=== PATIENT | female | born 1980 | race Caucasian/White ===

== ENCOUNTER 2019-11-28 13:18 | Outpatient (REF) | payer OTHER, BC, SELFPAY ==
[2019-11-29 10:03] LABS: BV Int Neg Control Negative (Negative); BV Int Pos Control Positive (Positive)
[2019-11-29 11:20] LABS: CT PCR NOT DETECTED (Not Detect.); NG PCR NOT DETECTED (Not Detect.)
== END 2019-11-28 13:19 | disposition home or self-care (01) ==
LOC: HO.LAB 13:18
PROVIDERS: PCP Internal Medicine; Referring Provider Internal Medicine; Visit Provider Advanced Practice Midwife
DX: Z01.419 Encounter for gynecological examination (general) (routine) without abnormal findings (principal); Z11.3 Encounter for screening for infections with a predominantly sexual mode of transmission; N89.8 Other specified noninflammatory disorders of vagina; R10.2 Pelvic and perineal pain
CPT/HCPCS: 87480; 87491; 87510; 87591; 87660

== ENCOUNTER 2019-12-01 15:49 | Outpatient (REF) | payer OTHER, BC, SELFPAY ==
--- NOTE | 2019-12-01 16:03 | US_ITS ---
EXAMINATION: ULTRASOUND PELVIS COMPLETE CLINICAL INFORMATION: Pelvic and perineal pain. COMPARISON: None TECHNIQUE: Transabdominal and transvaginal ultrasound of the pelvis was performed. FINDINGS: The uterus is anteverted, anteflexed and measures 8.0 cm in length, 3.2 cm in AP and 3.6 cm in transverse dimension. Echogenic myometrial calcification is seen to the left of uterus. There is an intrauterine contraceptive device in correct position. There are small nabothian cysts seen in the cervix. Right ovary measures 2.5 x 1.8 x 1.6 cm and volume 3.8 mL. Previously it measured 1.6 x 0.9 x 1.2 cm. There are small follicular cysts in the ovary. The left ovary measures 3.2 x 1.6 x 1.5 cm and volume 4.0 mL. There are small follicular cysts. A dominant follicle is visualized. There is no free fluid in the cul-de-sac. US/US transvaginal IMPRESSION: There is an intrauterine contraceptive device in correct position in the endometrial canal. Nonspecific left myometrial calcification in the uterus. Small nabothian cysts in the cervix. Bilateral small follicular cysts in the ovaries.
--- NOTE | 2019-12-01 16:03 | US_ITS ---
EXAMINATION: ULTRASOUND PELVIS COMPLETE CLINICAL INFORMATION: Pelvic and perineal pain. COMPARISON: None TECHNIQUE: Transabdominal and transvaginal ultrasound of the pelvis was performed. FINDINGS: The uterus is anteverted, anteflexed and measures 8.0 cm in length, 3.2 cm in AP and 3.6 cm in transverse dimension. Echogenic myometrial calcification is seen to the left of uterus. There is an intrauterine contraceptive device in correct position. There are small nabothian cysts seen in the cervix. Right ovary measures 2.5 x 1.8 x 1.6 cm and volume 3.8 mL. Previously it measured 1.6 x 0.9 x 1.2 cm. There are small follicular cysts in the ovary. The left ovary measures 3.2 x 1.6 x 1.5 cm and volume 4.0 mL. There are small follicular cysts. A dominant follicle is visualized. There is no free fluid in the cul-de-sac. US/US pelvic complete IMPRESSION: There is an intrauterine contraceptive device in correct position in the endometrial canal. Nonspecific left myometrial calcification in the uterus. Small nabothian cysts in the cervix. Bilateral small follicular cysts in the ovaries.
== END 2019-12-01 15:50 | disposition home or self-care (01) ==
LOC: HO.US 15:49
PROVIDERS: PCP Internal Medicine; Visit Provider Advanced Practice Midwife
DX: R10.2 Pelvic and perineal pain (principal)
CPT/HCPCS: 76830; 76856

== ENCOUNTER → 2019-12-15 14:45 | Outpatient (BNVA) | payer OTHER, BC, SELFPAY | PROVIDERS: Visit Provider Advanced Practice Midwife | DX: Z76.89 Persons encountering health services in other specified circumstances (principal) ==

== ENCOUNTER 2020-09-18 15:49 | Outpatient (REF) | payer BC, SELFPAY ==
--- NOTE | ~2020-09-18 | MM_ITS ---
EXAMINATION: MM SCREENING DIGITAL BREAST TOMOSYNTHESIS, BILATERAL CLINICAL INFORMATION: Screening. Asymptomatic. The lifetime risk of breast cancer based on the Tyrer-Cuzick Model is 14%. COMPARISON: Mammography: 08/11/2019, 08/05/2018, 07/22/2017 TECHNIQUE: Digital mammography is performed in craniocaudal and mediolateral oblique views along with computer-aided detection (CAD). Digital breast tomosynthesis is performed in implant-displaced craniocaudal and implant-displaced mediolateral oblique views along with computer-aided detection (CAD). Synthesized 2D images are generated from the tomosynthesis. Additional implant displaced left MLO view is provided. FINDINGS: The breasts are heterogeneously dense, which may obscure small masses (ACR BI-RADS breast composition Category c). Parenchymal pattern borders on average fibroglandular. There is no significant mass or architectural abnormality or abnormal calcifications. No significant changes from prior studies. There are bilateral implants with smooth contours similar to previous exams. No significant changes. MM/MM tomosynthesis screen imp BI IMPRESSION: No mammographic evidence of malignancy. ASSESSMENT: BI-RADS 1: Negative RECOMMENDATION: Routine annual mammography screening. This patient's information was entered into a reminder system with a target due date for their next mammogram.
== END 2020-09-18 15:50 | disposition home or self-care (01) ==
LOC: HO.MAMMO 15:49
PROVIDERS: Visit Provider Internal Medicine
DX: Z12.31 Encounter for screening mammogram for malignant neoplasm of breast (principal)
CPT/HCPCS: 77063; 77067

== ENCOUNTER 2020-11-29 14:56 | Outpatient (REF) | payer BC, SELFPAY ==
[2020-11-30 08:31] LABS: BV Int Neg Control Negative (Negative); BV Int Pos Control Positive (Positive)
== END 2020-11-29 14:57 | disposition home or self-care (01) ==
LOC: HO.LAB 14:56
PROVIDERS: Visit Provider Advanced Practice Midwife
DX: Z01.419 Encounter for gynecological examination (general) (routine) without abnormal findings (principal)
CPT/HCPCS: 87480; 87510; 87660

== ENCOUNTER 2021-07-29 09:44 | Outpatient (REF) | payer BC, SELFPAY ==
[2021-07-30 06:05] LABS: CT PCR NOT DETECTED (Not Detect.); NG PCR NOT DETECTED (Not Detect.)
== END 2021-07-29 09:45 | disposition home or self-care (01) ==
LOC: HO.LAB 09:44
PROVIDERS: PCP Internal Medicine; Visit Provider Advanced Practice Midwife
DX: Z30.433 Encounter for removal and reinsertion of intrauterine contraceptive device (principal); Z32.02 Encounter for pregnancy test, result negative; Z20.2 Contact with and (suspected) exposure to infections with a predominantly sexual mode of transmission
CPT/HCPCS: 58300; 58301; 81025; 87491; 87591; J7298

== ENCOUNTER 2021-07-29 11:20 | Outpatient (REF) | payer BC, SELFPAY ==
--- NOTE | ~2021-07-29 | US_ITS ---
EXAMINATION: US PELVIS CLINICAL INFORMATION: Encounter for routine IUD placement. COMPARISON: Pelvic ultrasound 12/01/2019 TECHNIQUE: Ultrasound of the pelvis is performed using both transabdominal and transvaginal transducers along with Doppler. Transvaginal imaging is performed due to inadequate visualization transabdominally. FINDINGS: Uterus: The uterus is anteverted and measures 8.2 x 3.4 x 4.1 cm. The IUD appears well positioned within the endometrial canal. The endometrium measures approximately 6 mm The uterus is smooth in contour and has normal myometrial echogenicity. No visible fibroid. Adnexa: Both ovaries are visualized. There is normal color flow to the adnexa. There is no ovarian torsion. There is no pelvic ascites or fluid collection. Right ovary measures 2.9 x 1.2 x 1.6 cm. Left ovary measures 1.9 x 2.0 x 2.1 cm. US/US pelvic and transvaginal IMPRESSION: IUD appears in appropriate position.
== END 2021-07-29 11:21 | disposition home or self-care (01) ==
LOC: HO.US 11:20
PROVIDERS: PCP Internal Medicine; Visit Provider Advanced Practice Midwife
DX: Z30.431 Encounter for routine checking of intrauterine contraceptive device (principal)
CPT/HCPCS: 76830; 76856

== ENCOUNTER 2021-09-20 15:35 | Outpatient (REF) | payer BC, SELFPAY ==
--- NOTE | ~2021-09-20 | MM_ITS ---
EXAMINATION: MM SCREENING DIGITAL BREAST TOMOSYNTHESIS, BILATERAL CLINICAL INFORMATION: Screening. Asymptomatic. Family history breast cancer, sister. The lifetime risk of breast cancer based on the Tyrer-Cuzick Model is 21%. COMPARISON: Mammography: 09/18/2020, 08/29/2019, 08/05/2018 TECHNIQUE: Digital mammography is performed in craniocaudal and mediolateral oblique views along with computer-aided detection (CAD). Digital breast tomosynthesis is performed in implant-displaced craniocaudal and implant-displaced mediolateral oblique views along with computer-aided detection (CAD). Synthesized 2D images are generated from the tomosynthesis. FINDINGS: There are scattered areas of fibroglandular density (ACR BI-RADS breast composition Category b). There are bilateral implants. The implant contours are smooth and similar to prior studies. Parenchymal pattern is similar to prior exam. There is no interval mass or developing density or architectural abnormality. No abnormal calcifications. The axilla and skin contours are unremarkable. No significant changes. MM/MM tomosynthesis screen imp BI IMPRESSION: No mammographic evidence of malignancy. ASSESSMENT: BI-RADS 1: Negative RECOMMENDATION: 1. Routine annual mammography screening. 2. The lifetime risk of breast cancer based on the Tyrer-Cuzick Model is 21%. Additional annual adjunct screening with breast MRI may be of benefit in women with a risk score of 20% or greater. This patient's information was entered into a reminder system with a target due date for their next mammogram.
== END 2021-09-20 15:36 | disposition home or self-care (01) ==
LOC: HO.MAMMO 15:35
PROVIDERS: PCP Internal Medicine; Visit Provider Internal Medicine
DX: Z12.31 Encounter for screening mammogram for malignant neoplasm of breast (principal)
CPT/HCPCS: 77063; 77067

== ENCOUNTER 2021-12-02 15:43 | Outpatient (REF) | payer BC, SELFPAY ==
[2021-12-03 12:25] LABS: BV Int Neg Control Negative (Negative); BV Int Pos Control Positive (Positive)
== END 2021-12-02 15:44 | disposition home or self-care (01) ==
LOC: HO.LNP 15:43
PROVIDERS: Visit Provider Advanced Practice Midwife
DX: N89.8 Other specified noninflammatory disorders of vagina (principal)
CPT/HCPCS: 87480; 87510; 87660

== ENCOUNTER 2022-09-26 15:23 | Outpatient (REF) | payer BC, SELFPAY ==
--- NOTE | ~2022-09-26 | MM_ITS ---
EXAMINATION: MM SCREENING DIGITAL BREAST TOMOSYNTHESIS, BILATERAL CLINICAL INFORMATION: Screening. Asymptomatic. COMPARISON: Mammography: This study is compared with prior exams dating back to 2019. TECHNIQUE: Digital breast tomosynthesis is performed in both the craniocaudal and mediolateral oblique views along with computer-aided detection (CAD). Synthesized 2D images are generated from the tomosynthesis. FINDINGS: There are scattered areas of fibroglandular density (ACR BI-RADS breast composition Category b). There are mammographically intact, retropectoral saline breast implants. There are no significant masses, abnormal calcifications, or other abnormalities. MM/MM tomosynthesis screening BI IMPRESSION: No mammographic evidence of malignancy. ASSESSMENT: BI-RADS BI-RADS 1 - Negative RECOMMENDATION: Routine annual mammography screening. 1 year F/U This examination should not preclude the clinical evaluation of a suspicious palpable abnormality. This patient's information was entered into a reminder system with a target due date for their next mammogram.
== END 2022-09-26 15:24 | disposition home or self-care (01) ==
LOC: HO.MAMMO 15:23
PROVIDERS: PCP Internal Medicine; Visit Provider Advanced Practice Midwife
DX: Z12.31 Encounter for screening mammogram for malignant neoplasm of breast (principal)
CPT/HCPCS: 77063; 77067

== ENCOUNTER → 2022-09-26 16:00 | Outpatient (BNV) | payer BC, SELFPAY | PROVIDERS: PCP Internal Medicine; Visit Provider Radiology Diagnostic Radiology | DX: Z12.31 Encounter for screening mammogram for malignant neoplasm of breast (principal) | CPT/HCPCS: 77063; 77067 ==

== ENCOUNTER 2022-12-05 14:45 | Outpatient (REF) | payer BC, SELFPAY ==
[2022-12-06 13:40] LABS: BV Int Neg Control Negative (Negative); BV Int Pos Control Positive (Positive)
[2022-12-11 02:43] LABS: HPV mRNA E6/E7 rflx Not Detected (Not Detected)
== END 2022-12-05 14:46 | disposition home or self-care (01) ==
LOC: HO.LNP 14:45
PROVIDERS: Visit Provider Advanced Practice Midwife
DX: Z01.419 Encounter for gynecological examination (general) (routine) without abnormal findings (principal); Z11.51 Encounter for screening for human papillomavirus (HPV); N89.8 Other specified noninflammatory disorders of vagina; Z98.82 Breast implant status
CPT/HCPCS: 87480; 87510; 87624; 87660; 88142

== ENCOUNTER 2022-12-05 14:45 | Outpatient (AMB) | payer BC, SELFPAY ==
--- NOTE | 2022-12-05 14:48 | MHC.OFFVIS ---
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 Scribed for LENKA Olmos by Elvia Ayala manager medical device, on 12/05/2022 at 3:02 pm, EST. Director Of Retention Required: No Information Interpreted: non-clinical & clinical Oleo Hasher And Renderer: Oleo Hasher And Renderer Present (Yaritza ANDREWS) Accompanied by: Self / Same As Patient Allergies shellfish derived [SHELLFISH DERIVED] Allergy (Severe, Verified 12/05/22 14:54) ANAPHYLAXIS azithromycin [From ZITHROMAX] Allergy (Unknown, Verified 12/05/22 14:54) HIVES erythromycin base [ERYTHROMYCIN BASE] Allergy (Unknown, Verified 12/05/22 14:54) HIVES morphine [MORPHINE] Allergy (Unknown, Verified 12/05/22 14:54) HYPOTENSIVE cefuroxime [From Ceftin] Allergy (Verified 12/05/22 14:54) Hives From CEFTIN Allergy (Unknown, Uncoded 12/05/22 14:54) HIVES Is last menstrual period known: No (mirena) HPI HPI Comments History of Present Illness Details She is a premenopausal woman presenting for annual examination. Doing well with no concerns. She tries to eat healthy and stays active with exercise. Currently on Mirena IUD. She confirms vaginal itching and irritation every time she has sex with her . also had a yeast infection, treated with topical OTC cream. Denies family history of ovarian or colon cancer. Maternal grandmother, paternal grandmother, and sister diagnosed with breast cancer. Last pap smear 02/17/2020, was negative. Last mammogram 09/26/2022. Denies a history of diabetes mellitus. PFSH Surgical History H/O breast augmentation H/O knee surgery Hx of tubal ligation S/P cervical disc replacement H/O discectomy Family History Father Diabetes mellitus Hypertension Maternal Grandmother History of breast cancer Paternal Grandmother History of breast cancer Lupus Sister History of breast cancer, Onset Age: 45 Social History Household Members: Spouse and Children Housing: House Alcohol intake: current Alcohol intake frequency: holidays/special occasions only Patient Tobacco Use Status: Current everyday Tobacco user Cigarettes Per Day: 10 Years Smoked: 20 Current occupational status: employed 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 Sexual orientation: Straight/Heterosexual Gender identity: Female Female Reproductive History Menstrual Age of Menarche: 11 control method: progestin IUCD Total pregnancies: 5 Full term: 3 Number of Living Children: 3 Ab induced: 1 Ab spontaneous: 1 Date of last pap smear: 02/16/17 Date of Mammogram: 09/26/22 Review of Systems Const All systems reviewed & are unremarkable except as noted in HPI and below Reports vaginal pruritus Physical Exam Vital Signs: Last Vital Signs BP 110/72 12/05/22 14:53 BMI result Body Mass Index 24.1 Const General: cooperative, healthy appearing, no acute distress, well developed and alert Orientation/consciousness: patient oriented x3 HEENT Head: Yes normal to inspection Eyes General: appearance normal, both eyes and all related structures Neck Neck: Yes normal visual inspection Thyroid: Thyroid normal Chest Chest palpation & inspection: normal inspection of the chest Breast/axilla inspection: normal inspection of the breasts (no puckering, dimpling, peau de orange, retraction, discharge, masses) and Other (Bilateral breast implants, scarring.) Breast/axilla palpation: normal palpation of the breasts Resp Effort & Inspection: normal respiratory effort GI Inspection: Yes normal to inspection Palpation (GI): Soft to palpation Rectal Exam - Female: deferred General: Yes bladder normal to inspection and Yes bladder normal to palpation External Female Exam: normal external appearance and normal appearance of the urethra Speculum Exam - Vagina: normal appearance of the vagina and normal palpation Speculum Exam - Cervix: normal palpation and Other cervical findings present (IUD stings were normal in length) Bimanual exam- vagina & uterus: normal bimanual exam, normal palpation, uterine size normal, bladder normal to palpation and normal palpation Bimanual Exam- Adnexa, other: normal adnexae and no masses Skin General skin exam: no rashes or lesions noted Neuro General: patient oriented x3 Cognition (Neuro): normal cognition Extrem General: Yes normal to inspection Psych Attitude: cooperative Thought process: Normal thought process present Assessment & Plan Assessment & Plan (1) Encounter for annual routine gynecological examination: Code(s): Z01.419 - Encounter for gynecological examination (general) (routine) without abnormal findings Plan: BRCA testing handout was given. Patient will consider and contact office if interested for future testing. Referral was placed today. Boric acid supplement to help with PH balance. Mammogram ordered for next year, 2023. Discussed: Current recommendations for pap smears per ASCCP guidelines. Breast awareness and periodic self breast exams. Maintaining a healthy lifestyle including a well balanced diet and routine exercise. Encouraged patient to sign up for patient portal. All of her questions and concerns were addressed to the best of my ability She will return in one year for AG. (2) Hx of breast implants, bilateral: Code(s): Z98.82 - Breast implant status Orders: Orders Pap Smear Today N89.8 - Other specified noninflammatory disorders of vagina, Z01.419 - Encounter for gynecological examination (general) (routine) without abnormal findings Bacterial Vaginosis Panel Today N89.8 - Other specified noninflammatory disorders of vagina, Z01.419 - Encounter for gynecological examination (general) (routine) without abnormal findings MM tomosynthesis screening BI Today Z12.31 - Encounter for screening mammogram for malignant neoplasm of breast Referrals General Surgery Referral Z80.3 - Family history of malignant neoplasm of breast Coding Level of Care Code Est Pt Prev Care 40-64y(81904) Diagnoses Encounter for annual routine gynecological examination Z01.419 Hx of breast implants, bilateral Z98.82
[2022-12-05 14:53] VITALS: BP 110/72; BMI 24.1
== END 2022-12-05 15:50 ==
PROVIDERS: Visit Provider Advanced Practice Midwife
DX: Z01.419 Encounter for gynecological examination (general) (routine) without abnormal findings (principal); Z98.82 Breast implant status
CPT/HCPCS: 99396

== ENCOUNTER 2023-02-12 14:53 | Outpatient (AMB) | payer BC, SELFPAY ==
--- NOTE | 2023-02-12 15:05 | MHC.OFFVIS ---
Intake Vital Signs 02/12/23 15:29 Height 5 ft 3 in Weight 142 lb 4 oz BMI 25.2 BP 123/82 Blood Pressure Location Lt brachial Position Sitting Pulse 77 Intake Visit Reasons: family history breast cancer, genetic testing Intake Note: Patient is seen in office for family history of breast cancer and possible genetic testing. Pt c/o: denies any concerns regarding her breast, had breast augmentation with no complications, did not breast feed mm:09/26/22 Helper Metal Hanging Required: No Slat Twister: Slat Twister Present Accompanied by: Self / Same As Patient Allergies shellfish derived [SHELLFISH DERIVED] Allergy (Severe, Verified 12/05/22 14:54) ANAPHYLAXIS azithromycin [From ZITHROMAX] Allergy (Unknown, Verified 12/05/22 14:54) HIVES erythromycin base [ERYTHROMYCIN BASE] Allergy (Unknown, Verified 12/05/22 14:54) HIVES morphine [MORPHINE] Allergy (Unknown, Verified 12/05/22 14:54) HYPOTENSIVE cefuroxime [From Ceftin] Allergy (Verified 12/05/22 14:54) Hives From CEFTIN Allergy (Unknown, Uncoded 12/05/22 14:54) HIVES Medication List - Last Reconciled 02/12/23 by Pedro Godwin MD albuterol sulfate 90 mcg/actuation inhalation cetirizine (Zyrtec) 10 mg PO DAILY fluconazole 150 mg PO DAILY 1 dose fluticasone propion-salmeterol 500-50 mcg/dose (Advair Diskus) 1 ea inhalation BID ibuprofen 400 mg PO Q8H levonorgestrel (Mirena) intrauterine tizanidine 2 mg PO TID PRN HPI HPI Comments History of Present Illness Details 42-year-old female patient found to be at high risk for breast cancer due to family history including a maternal grandmother, paternal grandmother and sister having been diagnosed with breast cancer. She previously underwent bilateral breast augmentation with a combination of saline/silicone implants. She tolerated the procedure well and denies any postoperative complications. She did have a problem with palpable lumps in the breast several years ago and was followed closely with mammogram and ultrasound but this has subsequently resolved without the need for surgery. Her sister was diagnosed with triple negative breast cancer last year at the age of 45. She is being treated at [facility] and has undergone chemotherapy and radiation therapy. She is 5 para 3 with 3 living, 1 miscarriage and 1 termination. She denies breast-feeding her children. She denies any previous history of breast infections. Her most recent mammogram of 09/26/2022 revealed no mammographic evidence of malignancy (BI-RADS 1). [facility] Surgical History Personal history of spine surgery H/O breast augmentation H/O knee surgery Hx of tubal ligation S/P cervical disc replacement H/O discectomy Family History Father Diabetes mellitus Hypertension Maternal Grandmother History of breast cancer Paternal Grandmother History of breast cancer Lupus Sister History of breast cancer, Onset Age: 45 Family/Other Cancer of unknown origin Social History Household Members: Spouse and Children Housing: House Alcohol intake: current Alcohol intake frequency: holidays/special occasions only Patient Tobacco Use Status: Current everyday Tobacco user Cigarettes Per Day: 10 Years Smoked: 20 Current occupational status: employed 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 Sexual orientation: Straight/Heterosexual Gender identity: Female Female Reproductive History Menstrual Age of Menarche: 11 Total pregnancies: 5 Number of Living Children: 3 Ab induced: 1 Ab spontaneous: 1 Review of Systems Const All systems reviewed & are unremarkable except as noted in HPI and below Denies chills, Denies fever(s), Denies headache(s), Denies poor appetite and Denies weakness ENT Denies headache(s) Card Denies chest pain, Denies irregular heart rhythm, Denies palpitations and Denies dyspnea Resp Denies cough, Denies excessive phlegm production and Denies dyspnea GI Denies abdominal pain, Denies bloating, Denies change in bowel habits, Denies constipation, Denies heartburn, Denies diarrhea, Denies nausea and Denies vomiting Denies urinary frequency Musc Denies back pain, Denies muscle weakness and Denies numbness Skin/Breast Denies changing lesions and Denies unusual bruising Neuro Denies headache(s), Denies numbness, Denies paresthesias and Denies weakness Psych Denies anxiety and Denies depression Endo Denies palpitations Fredy/Lymph Denies lymphadenopathy Physical Exam Vital Signs: Last Vital Signs Pulse 77 02/12/23 15:29 BP 123/82 02/12/23 15:29 BMI result Body Mass Index 25.2 Const General: cooperative and no acute distress Nutritional Appearance: well nourished Orientation/consciousness: patient oriented x3 Limitations: no limitations HEENT Head: Yes normocephalic and Yes atraumatic Ears: hearing grossly normal bilaterally Chest Other: Well-healed bilateral breast augmentation incisions. No calcification or capsule thickening noted. Left breast: No skin change, no nipple retraction, no nipple discharge, no palpable mass, no enlarged lymph nodes. Right breast: No skin change, no nipple retraction, no nipple discharge, no palpable mass, no enlarged lymph nodes Resp Effort & Inspection: normal respiratory effort, no audible wheezes, no cough and no respiratory distress Cardio Jugular venous distension: no JVD GI Inspection: Yes normal to inspection Skin Other: Warm, dry, no rash Neuro General: patient oriented x3 Extrem General: Yes no clubbing, cyanosis or edema Assessment & Plan Assessment & Plan (1) At high risk for breast cancer: Code(s): Z91.89 - Other specified personal risk factors, not elsewhere classified (2) Family history of breast cancer: Code(s): Z80.3 - Family history of malignant neoplasm of breast Plan 42-year-old female patient presenting with a strong family history of breast cancer including her sister developing breast cancer at the age of 45. Examination today revealed no suspicious findings in either breast. She is status post bilateral breast augmentation. Her most recent mammogram of 09/26/2022 revealed no mammographic evidence of malignancy (BI-RADS 1). We discussed genetic testing including the risks and benefits and she consents to proceed. This was performed today and she will return approximately 6 weeks to review the results. Coding Level of Care Code New Pt Level 4 (51319) Diagnoses At high risk for breast cancer Z91.89 Family history of breast cancer Z80.3
[2023-02-12 15:29] VITALS: BP 123/82; PULSE 77; BMI 25.2
== END 2023-02-12 16:11 | disposition home or self-care (01) ==
PROVIDERS: PCP Internal Medicine; Visit Provider Surgery
DX: Z80.3 Family history of malignant neoplasm of breast (principal); Z91.89 Other specified personal risk factors, not elsewhere classified
CPT/HCPCS: 99204

== ENCOUNTER → 2023-02-12 14:53 | Outpatient (BNVA) | payer BC, SELFPAY | PROVIDERS: PCP Internal Medicine; Visit Provider Surgery ==

== ENCOUNTER 2023-03-26 15:29 | Outpatient (AMB) | payer BC, SELFPAY ==
--- NOTE | 2023-03-26 15:50 | MHC.OFFVIS ---
Intake Vital Signs 03/26/23 16:00 Height 5 ft 3 in Weight 141 lb 2 oz BMI 25.0 BP 133/82 Blood Pressure Location Lt brachial Position Sitting Intake Visit Reasons: Genetic test results *HERE* Intake Note: Patient is seen in office for genetic testing results. Pt c/o: denies any concerns at the time of visit Melter Clerk Required: No Accompanied by: Self / Same As Patient Allergies shellfish derived [SHELLFISH DERIVED] Allergy (Severe, Verified 03/26/23 16:00) ANAPHYLAXIS azithromycin [From ZITHROMAX] Allergy (Unknown, Verified 03/26/23 16:00) HIVES erythromycin base [ERYTHROMYCIN BASE] Allergy (Unknown, Verified 03/26/23 16:00) HIVES morphine [MORPHINE] Allergy (Unknown, Verified 03/26/23 16:00) HYPOTENSIVE cefuroxime [From Ceftin] Allergy (Verified 03/26/23 16:00) Hives From CEFTIN Allergy (Unknown, Uncoded 03/26/23 16:00) HIVES Medication List - Last Reconciled 03/27/23 by Pedro Godwin MD albuterol sulfate 90 mcg/actuation inhalation cetirizine (Zyrtec) 10 mg PO DAILY fluconazole 150 mg PO DAILY 1 dose fluticasone propion-salmeterol 500-50 mcg/dose (Advair Diskus) 1 ea inhalation BID ibuprofen 400 mg PO Q8H levonorgestrel (Mirena) intrauterine tizanidine 2 mg PO TID PRN HPI HPI Comments History of Present Illness Details 42-year-old female patient found to be at high risk for breast cancer due to family history including a maternal grandmother, paternal grandmother and sister having been diagnosed with breast cancer. She previously underwent bilateral breast augmentation with a combination of saline/silicone implants. She tolerated the procedure well and denies any postoperative complications. She did have a problem with palpable lumps in the breast several years ago and was followed closely with mammogram and ultrasound but this has subsequently resolved without the need for surgery. Her sister was diagnosed with triple negative breast cancer last year at the age of 45. She is being treated at [facility] and has undergone chemotherapy and radiation therapy. She is 5 para 3 with 3 living, 1 miscarriage and 1 termination. She denies breast-feeding her children. She denies any previous history of breast infections. Her most recent mammogram of 09/26/2022 revealed no mammographic evidence of malignancy (BI-RADS 1). She underwent genetic testing on 02/12/2023. She returns today to review the results. This revealed no clinically significant mutation. 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 A breast cancer risk score was calculated at 21% placing her at high risk for breast cancer [facility] remaining lifetime risk of breast cancer was 23.0 %. Recommendations included monthly self examination, twice yearly clinical breast examination, and yearly mammogram and yearly breast MRI alternating every 6 months. A copy of the genetic testing was provided to the patient. [facility] Surgical History Personal history of spine surgery H/O breast augmentation H/O knee surgery Hx of tubal ligation S/P cervical disc replacement H/O discectomy Family History Father Diabetes mellitus Hypertension Maternal Grandmother History of breast cancer Paternal Grandmother History of breast cancer Lupus Sister History of breast cancer, Onset Age: 45 Family/Other Cancer of unknown origin Social History Household Members: Spouse and Children Housing: House Alcohol intake: current Alcohol intake frequency: holidays/special occasions only Patient Tobacco Use Status: Current everyday Tobacco user Cigarettes Per Day: 10 Years Smoked: 20 Current occupational status: employed 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 Sexual orientation: Straight/Heterosexual Gender identity: Female Female Reproductive History Menstrual Age of Menarche: 11 Review of Systems Const All systems reviewed & are unremarkable except as noted in HPI and below Denies chills, Denies fever(s), Denies headache(s), Denies poor appetite and Denies weakness ENT Denies headache(s) Card Denies chest pain, Denies irregular heart rhythm, Denies palpitations and Denies dyspnea Resp Denies cough, Denies excessive phlegm production and Denies dyspnea GI Denies abdominal pain, Denies bloating, Denies change in bowel habits, Denies constipation, Denies heartburn, Denies diarrhea, Denies nausea and Denies vomiting Denies urinary frequency Musc Denies back pain, Denies muscle weakness and Denies numbness Skin/Breast Denies changing lesions and Denies unusual bruising Neuro Denies headache(s), Denies numbness, Denies paresthesias and Denies weakness Psych Denies anxiety and Denies depression Endo Denies palpitations Fredy/Lymph Denies lymphadenopathy Physical Exam Vital Signs: Last Vital Signs BP 133/82 03/26/23 16:00 BMI result Body Mass Index 25.0 Const General: cooperative and no acute distress Nutritional Appearance: well nourished Orientation/consciousness: patient oriented x3 Limitations: no limitations Chest Other: Exam deferred Resp Effort & Inspection: normal respiratory effort, no audible wheezes, no cough and no respiratory distress Cardio Jugular venous distension: no JVD GI Inspection: Yes normal to inspection Skin Other: Warm, dry, no rash Neuro General: patient oriented x3 Extrem General: Yes no clubbing, cyanosis or edema Assessment & Plan Assessment & Plan (1) At high risk for breast cancer: Code(s): Z91.89 - Other specified personal risk factors, not elsewhere classified (2) Family history of breast cancer: Code(s): Z80.3 - Family history of malignant neoplasm of breast (3) Hx of breast implants, bilateral: Code(s): Z98.82 - Breast implant status Plan 42-year-old female patient determined to be at high risk for breast cancer due to family history. Her breast cancer risk score and Tyrer-Cuzick score were both above the 20 % threshold placing her at high risk for breast cancer. I recommended monthly self examinations, twice yearly clinical breast examination (which could include breast examination performed by her fabrication and layout craftsman), yearly mammogram and MRI alternating every 6 months. The patient expressed understanding and agrees with the plan. MRI of the breast has been ordered and she will return approximately 6 months. She is welcome to call sooner for any new concerns. Orders: Orders MR breast BI wo/w con 03/26/23 Z80.3 - Family history of malignant neoplasm of breast, Z91.89 - Other specified personal risk factors, not elsewhere classified, Z98.82 - Breast implant status Coding Level of Care Code Est Pt Level 3 (42360) Diagnoses At high risk for breast cancer Z91.89 Family history of breast cancer Z80.3 Hx of breast implants, bilateral Z98.82
[2023-03-26 16:00] VITALS: BP 133/82; BMI 25.0
== END 2023-03-26 16:16 | disposition home or self-care (01) ==
PROVIDERS: PCP Internal Medicine; Visit Provider Surgery
DX: Z91.89 Other specified personal risk factors, not elsewhere classified (principal); Z80.3 Family history of malignant neoplasm of breast; Z98.82 Breast implant status
CPT/HCPCS: 99213

== ENCOUNTER → 2023-03-26 15:29 | Outpatient (BNVA) | payer BC, SELFPAY | PROVIDERS: PCP Internal Medicine; Visit Provider Surgery ==

== ENCOUNTER 2023-04-22 16:15 | Outpatient (REF) | payer BC, SELFPAY ==
--- NOTE | ~2023-04-22 | MR_ITS ---
EXAMINATION: MR BREAST WITHOUT AND WITH CONTRAST, BILATERAL CLINICAL INFORMATION: High risk screening. Family history of breast cancer (sister diagnosed at age 46). Bilateral implant augmentation. COMPARISON: Mammography (nondiagnostic monitor review): 09/26/2022. TECHNIQUE: A 1.5 T system and a dedicated breast coil. T1-weighted sequences without fat-saturation were obtained prior to the administration of contrast. Fat-saturated T1 and T2-weighted sequences were also acquired. The patient received 6 mL of IV gadolinium-based contrast, Gadavist. Multiple sequential dynamic T1-weighted sequences were obtained through both breasts with fat-saturation. Subtracted images were reviewed. CAD postprocessing with 3-D reconstructions, maximum intensity projections and kinetic analysis was performed by the interpreting radiologist at an independent workstation and reviewed as a portion of this exam. The post processing was technically limited. The precontrast series was not loaded into the software correctly. I am unable to adjust. FINDINGS: The subtracted series is limited due to motion. Amount of Remaining Fibroglandular Signal: There are scattered areas of fibroglandular tissue (ACR BI-RADS breast composition category B).* Background Parenchymal Enhancement: Marked. Symmetry of Background Enhancement: Symmetric. RIGHT BREAST: There are no large suspicious findings. Masses: There are no large suspicious enhancing masses. Non-mass Enhancement: There is marked heterogeneous non-mass background enhancement which could obscure a significant finding. Focus: There are innumerable scattered circumscribed enhancing foci. No irregular masses. Non-enhancing Findings: Associated findings: There are no suspicious associated findings. There are multiple cysts present. There is an intact retropectoral implant. No surrounding fluid collection Kinetic Curve Assessment: Initial Phase: Color mapping unable to be performed due to [place] CAD malfunction. Delayed Phase: No convincing areas of washout. LEFT BREAST: There are no large suspicious findings. Masses: There are no large suspicious enhancing masses. Non-mass Enhancement: There is marked heterogeneous non-mass background enhancement which could obscure a significant finding. There is slightly greater regional non-mass enhancement in the upper inner left breast when compared to the remainder of the breast. There is no mammographic correlate. There is no evidence of washout. There are no mass margins or distortion. Focus: Scattered nonspecific enhancing foci. Non-enhancing Findings: Associated Findings: There are no suspicious associated findings. There is an intact retropectoral implant. No surrounding fluid. Kinetic Curve Assessment: Initial Phase: Color mapping failed due to [place] CAD malfunction. Delayed Phase: No convincing washout. The axillary lymph nodes are morphologically normal. No suspicious internal mammary lymph nodes are seen. No suspicious abnormality in the visualized portions of chest or abdomen. MR/MR breast BI wo/w con IMPRESSION: Limited study. Marked heterogeneous non-mass background enhancement and motion artifact. Regional slightly asymmetric non-mass enhancement medial upper left breast. No mammographic correlate. Given the limitations of the study, consider a short interval follow-up MRI to assess for interval changes. ASSESSMENT: Right Breast: ACR BI-RADS 2: Benign finding. Left Breast: ACR BI-RADS 3: Probably benign finding - short-interval follow up. RECOMMENDATIONS: Recommend short interval follow-up left breast MRI in 6 months.
[2023-04-22] MEDS: gadobutroL 7.5 ML VIAL IVPUSH (17:30)
== END 2023-04-22 16:16 | disposition home or self-care (01) ==
LOC: HO.MRI 16:15
PROVIDERS: PCP Internal Medicine; Visit Provider Surgery
DX: Z91.89 Other specified personal risk factors, not elsewhere classified (principal); Z80.3 Family history of malignant neoplasm of breast; Z98.82 Breast implant status
CPT/HCPCS: 77049; A9585

== ENCOUNTER 2023-05-05 14:33 | Outpatient (AMB) | payer BC, SELFPAY ==
[2023-05-05 14:39] VITALS: BP 150/91; PULSE 88; BMI 25.0
--- NOTE | 2023-05-05 14:39 | MHC.OFFVIS ---
Intake Vital Signs 05/05/23 14:39 Height 5 ft 3 in Weight 141 lb 6 oz BMI 25.0 BP 150/91 H Blood Pressure Location Lt brachial Position Sitting Pulse 88 Intake Visit Reasons: MRI results, breast Intake Note: Patient is seen in office for MRI results, following breast. Pt c/o: here for results MRI B:04/22/23 Early Morning Babysitter Required: No Accompanied by: Self / Same As Patient Allergies shellfish derived [SHELLFISH DERIVED] Allergy (Severe, Verified 05/05/23 14:39) ANAPHYLAXIS azithromycin [From ZITHROMAX] Allergy (Unknown, Verified 05/05/23 14:39) HIVES erythromycin base [ERYTHROMYCIN BASE] Allergy (Unknown, Verified 05/05/23 14:39) HIVES morphine [MORPHINE] Allergy (Unknown, Verified 05/05/23 14:39) HYPOTENSIVE cefuroxime [From Ceftin] Allergy (Verified 05/05/23 14:39) Hives From CEFTIN Allergy (Unknown, Uncoded 05/05/23 14:39) HIVES Medication List - Last Reconciled 05/05/23 by Pedro Godwin MD albuterol sulfate 90 mcg/actuation inhalation cetirizine (Zyrtec) 10 mg PO DAILY fluconazole 150 mg PO DAILY 1 dose fluticasone propion-salmeterol 500-50 mcg/dose (Advair Diskus) 1 ea inhalation BID ibuprofen 400 mg PO Q8H levonorgestrel (Mirena) intrauterine tizanidine 2 mg PO TID PRN HPI HPI Comments History of Present Illness Details 42-year-old female patient found to be at high risk for breast cancer due to family history including a maternal grandmother, paternal grandmother and sister having been diagnosed with breast cancer. She previously underwent bilateral breast augmentation with a combination of saline/silicone implants. She tolerated the procedure well and denies any postoperative complications. She did have a problem with palpable lumps in the breast several years ago and was followed closely with mammogram and ultrasound but this has subsequently resolved without the need for surgery. Her sister was diagnosed with triple negative breast cancer last year at the age of 45. She is being treated at [facility] and has undergone chemotherapy and radiation therapy. She is 5 para 3 with 3 living, 1 miscarriage and 1 termination. She denies breast-feeding her children. She denies any previous history of breast infections. Her most recent mammogram of 09/26/2022 revealed no mammographic evidence of malignancy (BI-RADS 1). She underwent genetic testing on 02/12/2023. This revealed no clinically significant mutation. 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 A breast cancer risk score was calculated at 21% placing her at high risk for breast cancer her Tyrer-zick remaining lifetime risk of breast cancer was 23.0 %. Recommendations included monthly self examination, twice yearly clinical breast examination, and yearly mammogram and yearly breast MRI alternating every 6 months. Breast MRI performed on 04/22/2023 revealed marked heterogeneous non-mass background enhancement and motion artifact. Regionally slightly asymmetric non mass enhancement in the medial upper left breast was noted which was felt to be low suspicion for malignancy (BI-RADS 3 left breast, BI-RADS 2 right breast). Repeat left mammogram in 6 months is recommended. [facility] Surgical History Personal history of spine surgery H/O breast augmentation H/O knee surgery Hx of tubal ligation S/P cervical disc replacement H/O discectomy Family History Father Diabetes mellitus Hypertension Maternal Grandmother History of breast cancer Paternal Grandmother History of breast cancer Lupus Sister History of breast cancer, Onset Age: 45 Family/Other Cancer of unknown origin Social History Household Members: Spouse and Children Housing: House Alcohol intake: current Alcohol intake frequency: holidays/special occasions only Patient Tobacco Use Status: Current everyday Tobacco user Cigarettes Per Day: 10 Years Smoked: 20 Current occupational status: employed 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 Sexual orientation: Straight/Heterosexual Gender identity: Female Female Reproductive History Menstrual Age of Menarche: 11 Review of Systems Const All systems reviewed & are unremarkable except as noted in HPI and below Denies chills, Denies fever(s), Denies headache(s), Denies poor appetite and Denies weakness ENT Denies headache(s) Card Denies chest pain, Denies irregular heart rhythm, Denies palpitations and Denies dyspnea Resp Denies cough, Denies excessive phlegm production and Denies dyspnea GI Denies abdominal pain, Denies bloating, Denies change in bowel habits, Denies constipation, Denies heartburn, Denies diarrhea, Denies nausea and Denies vomiting Denies urinary frequency Musc Denies back pain, Denies muscle weakness and Denies numbness Skin/Breast Denies changing lesions and Denies unusual bruising Neuro Denies headache(s), Denies numbness, Denies paresthesias and Denies weakness Psych Denies anxiety and Denies depression Endo Denies palpitations Fredy/Lymph Denies lymphadenopathy Physical Exam Vital Signs: Last Vital Signs Pulse 88 05/05/23 14:39 BP 150/91 H 05/05/23 14:39 BMI result Body Mass Index 25.0 Const General: no acute distress Chest Other: Exam deferred Resp Effort & Inspection: normal respiratory effort Skin Other: Warm, dry, no rash Extrem Other: No edema Assessment & Plan Assessment & Plan (1) At high risk for breast cancer: Code(s): Z91.89 - Other specified personal risk factors, not elsewhere classified (2) Hx of breast implants, bilateral: Code(s): Z98.82 - Breast implant status (3) Family history of breast cancer: Code(s): Z80.3 - Family history of malignant neoplasm of breast Plan 42-year-old female patient with a strong family history of breast cancer felt to be at high risk for breast cancer with a Tyrer-Cuzick score of 23 %. She returns today following breast MRI which did reveal an asymmetric area of non-mass enhancement in the left breast. Repeat in 6 months was recommended. I recommended follow-up examination following the repeat MRI in 6 months. She is welcome to call sooner for any new concerns. Orders: Orders MR breast LT wo/w con 10/05/23 Z80.3 - Family history of malignant neoplasm of breast, Z91.89 - Other specified personal risk factors, not elsewhere classified, Z98.82 - Breast implant status Coding Level of Care Code Est Pt Level 3 (88902) Diagnoses At high risk for breast cancer Z91.89 Hx of breast implants, bilateral Z98.82 Family history of breast cancer Z80.3
== END 2023-05-05 15:04 | disposition home or self-care (01) ==
PROVIDERS: PCP Internal Medicine; Visit Provider Surgery
DX: R92.8 Other abnormal and inconclusive findings on diagnostic imaging of breast (principal); Z98.82 Breast implant status; Z91.89 Other specified personal risk factors, not elsewhere classified; Z80.3 Family history of malignant neoplasm of breast
CPT/HCPCS: 99213

== ENCOUNTER → 2023-05-05 14:33 | Outpatient (BNVA) | payer BC, SELFPAY | PROVIDERS: PCP Internal Medicine; Visit Provider Surgery ==

== ENCOUNTER 2023-10-06 15:28 | Outpatient (REF) | payer BC, SELFPAY ==
--- NOTE | ~2023-10-06 | MM_ITS ---
EXAMINATION: MM SCREENING DIGITAL BREAST TOMOSYNTHESIS, BILATERAL WITH BREAST IMPLANTS CLINICAL INFORMATION: Screening. Asymptomatic. COMPARISON: Mammography: This study is compared with prior exams dating back to TECHNIQUE: Digital breast tomosynthesis is performed in both the craniocaudal and mediolateral oblique views along with computer-aided detection (CAD). Synthesized 2D images are generated from the tomosynthesis. FINDINGS: The breasts are heterogeneously dense, which may obscure small masses (ACR BI-RADS breast composition Category c). There are bilateral, retropectoral, mammographically intact saline breast implants. There are no significant masses, abnormal calcifications, or other abnormalities. MM/MM tomosynthesis screen imp BI IMPRESSION: No mammographic evidence of malignancy. ASSESSMENT: BI-RADS BI-RADS 1 - Negative RECOMMENDATION: Routine annual mammography screening. 1 year F/U This examination should not preclude the clinical evaluation of a suspicious palpable abnormality. This patient's information was entered into a reminder system with a target due date for their next mammogram. Electronically signed by: Lisa Tee MD 10/15/2023 11:22 AM EDT
== END 2023-10-06 15:29 | disposition home or self-care (01) ==
LOC: HO.MAMMO 15:28
PROVIDERS: PCP Internal Medicine; Referring Provider Advanced Practice Midwife; Visit Provider Internal Medicine
DX: Z12.31 Encounter for screening mammogram for malignant neoplasm of breast (principal)
CPT/HCPCS: 77063; 77067

== ENCOUNTER → 2023-10-06 15:45 | Outpatient (BNV) | payer BC, SELFPAY | PROVIDERS: PCP Internal Medicine; Referring Provider Advanced Practice Midwife; Visit Provider Radiology Diagnostic Radiology | DX: Z12.31 Encounter for screening mammogram for malignant neoplasm of breast (principal) | CPT/HCPCS: 77063; 77067 ==

== ENCOUNTER 2023-11-12 15:26 | Outpatient (AMB) | payer BC, SELFPAY ==
--- NOTE | 2023-11-12 15:32 | MHC.OFFVIS ---
Vital Signs 11/12/23 15:44 Height 5 ft 3 in Weight 138 lb 8 oz BMI 24.5 BP 133/79 Blood Pressure Location Lt brachial Position Sitting Pulse 77 Intake Visit Reasons: MRI results Intake Note: Patient is seen in office for 6 month follow up, breast exam. 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 Accompanied by: Self / Same As Patient Allergies shellfish derived [SHELLFISH DERIVED] Allergy (Severe, Verified 05/05/23 14:39) ANAPHYLAXIS azithromycin [From ZITHROMAX] Allergy (Unknown, Verified 05/05/23 14:39) HIVES erythromycin base [ERYTHROMYCIN BASE] Allergy (Unknown, Verified 05/05/23 14:39) HIVES morphine [MORPHINE] Allergy (Unknown, Verified 05/05/23 14:39) HYPOTENSIVE cefuroxime [From Ceftin] Allergy (Verified 05/05/23 14:39) Hives From CEFTIN Allergy (Unknown, Uncoded 05/05/23 14:39) HIVES Medication List - Last Reconciled 11/12/23 by Pedro Godwin MD albuterol sulfate 90 mcg/actuation inhalation cetirizine (Zyrtec) 10 mg PO DAILY epinephrine (EpiPen) 0.3 mg IM Q10M PRN fluconazole 150 mg PO DAILY 1 dose fluticasone propion-salmeterol 500-50 mcg/dose (Advair Diskus) 1 ea inhalation BID ibuprofen 400 mg PO Q8H levonorgestrel (Mirena) intrauterine lorazepam (Ativan) 0.5 mg orally 1 hour prior to MRI, repeat x1 prn PRN; omalizumab (Xolair) 300 mg subcut Q4W omalizumab (Xolair) 75 mg subcut Q4W tizanidine 2 mg PO TID PRN HPI Comments Details: 43-year-old female patient found to be at high risk for breast cancer due to family history including a maternal grandmother, paternal grandmother and sister having been diagnosed with breast cancer. She previously underwent bilateral breast augmentation with a combination of saline/silicone implants. She tolerated the procedure well and denies any postoperative complications. She did have a problem with palpable lumps in the breast several years ago and was followed closely with mammogram and ultrasound but this has subsequently resolved without the need for surgery. Her sister was diagnosed with triple negative breast cancer last year at the age of 45 and is being treated in [facility] with chemotherapy and radiation therapy. The patient is 5 para 3 with 3 living, 1 miscarriage and 1 termination. She denies breast-feeding her children. She denies any previous history of breast infections. Her most recent mammogram of 10/06/2023 revealed no mammographic evidence of malignancy (BI-RADS 1). She underwent genetic testing on 02/12/2023. This revealed no clinically significant mutation. 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 A breast cancer risk score was calculated at 21% placing her at high risk for breast cancer her Tyrer-Cuzick remaining lifetime risk of breast cancer was 23.0 %. Recommendations included monthly self examination, twice yearly clinical breast examination, and yearly mammogram and yearly breast MRI alternating every 6 months. Breast MRI performed on 04/22/2023 revealed marked heterogeneous non-mass background enhancement and motion artifact. Regionally slightly asymmetric non mass enhancement in the medial upper left breast was noted which was felt to be low suspicion for malignancy (BI-RADS 3 left breast, BI-RADS 2 right breast). A repeat breast MRI performed on 10/14/2023 at [facility] revealed bilateral non-mass enhancement felt to be low suspicion for malignancy and six-month follow-up was recommended (BI-RADS 3). She denies any new breast symptoms. She reports her 19-year-old dog this morning. [facility] Surgical History Personal history of spine surgery H/O breast augmentation H/O knee surgery Hx of tubal ligation S/P cervical disc replacement H/O discectomy Family History Father Diabetes mellitus Hypertension Maternal Grandmother History of breast cancer Paternal Grandmother History of breast cancer Lupus Sister History of breast cancer, Onset Age: 45 Family/Other Cancer of unknown origin Social History Household Members: Spouse and Children Housing: House Alcohol intake: current Alcohol intake frequency: holidays/special occasions only Patient Tobacco Use Status: Current everyday Tobacco user Cigarettes Per Day: 10 Years Smoked: 20 Current occupational status: employed 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 Sexual orientation: Straight/Heterosexual Gender identity: Female Female Reproductive History Menstrual Age of Menarche: 11 Review of Systems Const All systems reviewed & are unremarkable except as noted in HPI and below Denies chills, Denies fever(s), Denies headache(s), Denies poor appetite and Denies weakness ENT Denies headache(s) Card Denies chest pain, Denies irregular heart rhythm, Denies palpitations and Denies dyspnea Resp Denies cough, Denies excessive phlegm production and Denies dyspnea GI Denies abdominal pain, Denies bloating, Denies change in bowel habits, Denies constipation, Denies heartburn, Denies diarrhea, Denies nausea and Denies vomiting Denies urinary frequency Musc Denies back pain, Denies muscle weakness and Denies numbness Skin/Breast Denies changing lesions and Denies unusual bruising Neuro Denies headache(s), Denies numbness, Denies paresthesias and Denies weakness Psych Denies anxiety and Denies depression Endo Denies palpitations Fredy/Lymph Denies lymphadenopathy Physical Exam Vital Signs: Last Vital Signs Pulse 77 11/12/23 15:44 BP 133/79 11/12/23 15:44 BMI result Body Mass Index 24.5 Const General: no acute distress Chest Other: Bilateral breast implants with intact capsules and well-healed incisions. Left breast: No skin change, no nipple retraction, no nipple discharge, no palpable mass, no enlarged lymph nodes. Right breast: No skin change, no nipple retraction, no nipple discharge, no palpable mass, no enlarged lymph nodes Resp Effort & Inspection: normal respiratory effort Skin Other: Warm, dry, no rash Extrem Other: No edema Assessment & Plan Assessment & Plan (1) At high risk for breast cancer: Code(s): Z91.89 - Other specified personal risk factors, not elsewhere classified Category: Medical (2) Family history of breast cancer: Code(s): Z80.3 - Family history of malignant neoplasm of breast Category: Medical (3) Hx of breast implants, bilateral: Code(s): Z98.82 - Breast implant status Category: Surgical Plan 43-year-old female patient with a strong family history of breast cancer felt to be at high risk for breast cancer with a Tyrer-Cuzick score of 23 %. She returns today following her repeat breast MRI performed at [facility] on 10/14/2023 which revealed non-mass enhancement bilaterally felt to be low suspicion for malignancy and six-month follow-up recommended (BI-RADS 3). Her most recent mammogram performed on 10/06/2023 revealed no suspicious findings in either breast (BI-RADS 1). I recommended follow-up examination following the repeat MRI in 6 months. She is welcome to call sooner for any new concerns. Orders: Orders MR breast BI wo/w con 04/18/24 Z80.3 - Family history of malignant neoplasm of breast, Z91.89 - Other specified personal risk factors, not elsewhere classified Coding Level of Care Code Est Pt Level 3 (80065) Diagnoses At high risk for breast cancer Z91.89 Family history of breast cancer Z80.3 Hx of breast implants, bilateral Z98.82
[2023-11-12 15:44] VITALS: BP 133/79; PULSE 77; BMI 24.5
== END 2023-11-12 16:01 | disposition home or self-care (01) ==
PROVIDERS: PCP Internal Medicine; Visit Provider Surgery
DX: Z91.89 Other specified personal risk factors, not elsewhere classified (principal); Z80.3 Family history of malignant neoplasm of breast; Z98.82 Breast implant status
CPT/HCPCS: 99213

== ENCOUNTER → 2023-11-12 15:26 | Outpatient (BNVA) | payer BC, SELFPAY | PROVIDERS: PCP Internal Medicine; Visit Provider Surgery ==

== ENCOUNTER 2023-12-11 13:35 | Outpatient (REF) | payer BC, SELFPAY ==
[2023-12-12 15:49] LABS: Bacterial Vaginosis PCR NEGATIVE (Negative); Candida Group PCR NOT DETECTED (Not Detect); Candida glab krusei PCR NOT DETECTED (Not Detect); Trichomonas vaginalis PCR NOT DETECTED (Not Detect)
== END 2023-12-11 13:36 | disposition home or self-care (01) ==
LOC: HO.LAB 13:35
PROVIDERS: PCP Internal Medicine; Visit Provider Advanced Practice Midwife
DX: N89.8 Other specified noninflammatory disorders of vagina (principal)
CPT/HCPCS: 0352U

== ENCOUNTER 2023-12-11 13:35 | Outpatient (AMB) | payer BC, SELFPAY ==
--- NOTE | 2023-12-11 13:43 | A.OFFVIS_ITS ---
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 Doing well with no concerns: She reports urgency and leakage of urine. Admits to frequent coughing which further aggravates her symptoms. She has tried pelvic floor physical therapy in the past- did not help. She denies any urinary symptoms currently. She tries to eat healthy and stays active with exercise. Mirena IUD user no issues with bleeding. Currently is not sexually active regularly, partner has some health issues additionally. She denies vaginal itching and irritation. Recently treated for yeast. STI screening offered; she declined. Last pap smear 2022, negative. Mammogram: 2023. ON LICENSE OF [facility] Medical History (Updated 12/11/23 @ 14:27 by Wendy Marshall CNM) Urgency incontinence Surgical History Personal history of spine surgery H/O breast augmentation H/O knee surgery Hx of tubal ligation S/P cervical disc replacement H/O discectomy Family History (Updated 12/11/23 @ 13:50 by DARRYL Travis) Father Diabetes mellitus Hypertension Maternal Grandmother History of breast cancer Paternal Grandmother History of breast cancer Lupus Sister History of breast cancer, Onset Age: 45 Family/Other Cancer of unknown origin Maternal Aunt Ovarian cancer Social History Household Members: Spouse and Children Housing: House Alcohol intake: current Alcohol intake frequency: holidays/special occasions only Patient Tobacco Use Status: Current everyday Tobacco user Cigarettes Per Day: 10 Years Smoked: 20 Current occupational status: employed 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 Sexual orientation: Straight/Heterosexual Gender identity: Female Female Reproductive History Menstrual Age of Menarche: 11 control method: progestin IUCD (Mirena 07/2021) Total pregnancies: 5 Full term: 3 Number of Living Children: 3 Ab induced: 1 Ab spontaneous: 1 Date of last pap smear: 12/05/22 (neg pap and hpv) Date of Mammogram: 10/06/23 (Birad 1) Review of Systems Const All systems reviewed & are unremarkable except as noted in HPI and below Reports as per HPI Eyes Reports no additional complaints ENT Reports no additional complaints Card Reports no additional complaints Resp Reports no additional complaints GI Reports as per HPI and Reports no additional complaints Reports as per HPI Musc Reports no additional complaints Skin/Breast Reports as per HPI Neuro Reports no additional complaints Psych Reports no additional complaints Endo Reports no additional complaints Fredy/Lymph Reports no additional complaints Aller/Immun Reports no additional complaints Physical Exam Vital Signs: Last Vital Signs BP 110/74 12/11/23 13:44 BMI result Body Mass Index 23.7 Const General: cooperative, healthy appearing, no acute distress, well developed and alert Orientation/consciousness: patient oriented x3 HEENT Head: Yes normal to inspection Eyes General: appearance normal, both eyes and all related structures Neck Neck: Yes normal visual inspection Thyroid: Thyroid normal Chest Other: Bilateral implants and scarring Chest palpation & inspection: normal inspection of the chest and other (no puckering, dimpling, peau de orange, retraction, discharge, masses) Breast/axilla inspection: normal inspection of the breasts Breast/axilla palpation: normal palpation of the breasts Resp Effort & Inspection: normal respiratory effort GI Inspection: Yes normal to inspection and Yes scar Palpation (GI): Soft to palpation Rectal Exam - Female: deferred General: Yes bladder normal to palpation External Female Exam: normal external appearance and normal appearance of the urethra Speculum Exam - Vagina: normal appearance of the vagina, normal palpation and normal vaginal discharge (White discharge clumpy in the posterior aspect of the vaginal wall) Speculum Exam - Cervix: normal appearance of the cervix, normal palpation and Other cervical findings present (IUD string teased out with Cytobrush) Bimanual exam- vagina & uterus: normal bimanual exam, normal palpation, uterine size normal, bladder normal to palpation, normal palpation and non-tender Bimanual Exam- Adnexa, other: no masses Skin General skin exam: no rashes or lesions noted Rashes: no rashes Neuro General: patient oriented x3 Cognition (Neuro): normal cognition Extrem General: Yes normal to inspection Psych Attitude: cooperative Thought process: Normal thought process present Assessment & Plan Assessment & Plan (1) Encounter for annual routine gynecological examination: Code(s): Z01.419 - Encounter for gynecological examination (general) (routine) without abnormal findings Category: Medical (2) IUD surveillance: Code(s): Z30.431 - Encounter for routine checking of intrauterine contraceptive device Category: Medical (3) Urgency incontinence: Code(s): N39.41 - Urge incontinence Category: Medical (4) Vaginal discharge: Code(s): N89.8 - Other specified noninflammatory disorders of vagina Plan Discussed: Current recommendations for pap smears per ASCCP guidelines. Breast awareness and periodic breast exams. Close surveillance with Dr. Godwin with the MRIs, exams and mammograms. Maintain a healthy lifestyle including a well balanced diet and routine exercise. BV panel obtained await results for plan of care. Referral to urology-prefers female provider. Patient verbalizes understanding and agrees to the plan of care. She was given opportunity to ask questions and all questions were answered to the best of my ability. RTO in one year for annual nutrition services aide examination. This note is constructed using voice recognition software. While every effort has been made to ensure accuracy, dairy farm worker errors may have been included. Orders: Orders Bacterial Vaginosis Panel Today N89.8 - Other specified noninflammatory disorders of vagina Referrals Urology Referral N39.41 - Urge incontinence Coding Level of Care Code Est Pt Prev Care 40-64y(76140) Diagnoses Encounter for annual routine gynecological examination Z01.419 IUD surveillance Z30.431 Urgency incontinence N39.41 Vaginal discharge N89.8
[2023-12-11 13:44] VITALS: BP 110/74; BMI 23.7
== END 2023-12-11 14:35 | disposition home or self-care (01) ==
LOC: HO.HWS 13:35
PROVIDERS: PCP Internal Medicine; Visit Provider Advanced Practice Midwife
DX: Z01.419 Encounter for gynecological examination (general) (routine) without abnormal findings (principal); Z30.431 Encounter for routine checking of intrauterine contraceptive device; N39.41 Urge incontinence; N89.8 Other specified noninflammatory disorders of vagina
CPT/HCPCS: 99396

== ENCOUNTER 2024-02-18 14:55 | Outpatient (AMB) | payer BC, SELFPAY ==
--- NOTE | 2024-02-18 15:23 | A.OFFVIS_ITS ---
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 Accompanied by: Self / Same As Patient Allergies shellfish derived [SHELLFISH DERIVED] Allergy (Severe, Verified 02/18/24 20:41) ANAPHYLAXIS azithromycin [From ZITHROMAX] Allergy (Unknown, Verified 02/18/24 20:41) HIVES erythromycin base [ERYTHROMYCIN BASE] Allergy (Unknown, Verified 02/18/24 20:41) HIVES morphine [MORPHINE] Allergy (Unknown, Verified 02/18/24 20:41) HYPOTENSIVE cefuroxime [From Ceftin] Allergy (Verified 02/18/24 20:41) Hives From CEFTIN Allergy (Unknown, Uncoded 02/18/24 20:41) HIVES Medication List - Last Reconciled 02/18/24 by ALICE Villa-JACQUELINE albuterol sulfate 90 mcg/actuation inhalation cetirizine (Zyrtec) 10 mg PO DAILY epinephrine (EpiPen) 0.3 mg IM Q10M PRN ibuprofen 400 mg PO Q8H levonorgestrel (Mirena) intrauterine lorazepam (Ativan) 0.5 mg orally 1 hour prior to MRI, repeat x1 prn PRN; mirabegron ER (Myrbetriq) 25 mg PO DAILY 30 days omalizumab (Xolair) 300 mg subcut Q4W omalizumab (Xolair) 75 mg subcut Q4W tizanidine 2 mg PO TID PRN HPI Comments Details: Shannan is a 43-year-old female patient of . She has a past medical history of allergies. She presents to the office today as a new patient for stress/urge incontinence. 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 She does have a previous history of 3 vaginal births. She reports babies were of average size and labors were of average t iming. She reports having allergies and feels upon coughing she has urinary leakage. We discussed at length potential causes and treatment options for lower urinary tract symptoms patient is experiencing. She otherwise denies urinary urgency, urinary frequency, nocturia, hematuria, dysuria, foul smelling urine, changes to urinary stream, flank pain, fever, and or chills. In office urinalysis results reviewed with the patient today. PVR 0 mL. She reports having trialed pelvic floor in the past and did not find this helpful. She reports symptoms have been present for quite sometime however feels they are worsening. We discussed obtaining retroperitoneal ultrasound for further assessment evaluation. We discussed potential near future in office urodynamics for further assessment evaluation. She discusses her sons upcoming extensive back surgery at [facility]. She otherwise offers no other issues or concerns at this time. [facility] Medical History Urgency incontinence Surgical History Personal history of spine surgery H/O breast augmentation H/O knee surgery Hx of tubal ligation S/P cervical disc replacement H/O discectomy Family History Father Diabetes mellitus Hypertension Maternal Grandmother History of breast cancer Paternal Grandmother History of breast cancer Lupus Sister History of breast cancer, Onset Age: 45 Family/Other Cancer of unknown origin Maternal Aunt Ovarian cancer Social History Household Members: Spouse and Children Housing: House Alcohol intake: current Alcohol intake frequency: holidays/special occasions only Patient Tobacco Use Status: Current everyday Tobacco user Cigarettes Per Day: 10 Years Smoked: 20 Current occupational status: employed 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 Sexual orientation: Straight/Heterosexual Gender identity: Female Female Reproductive History Menstrual Age of Menarche: 11 Review of Systems Const All systems reviewed & are unremarkable except as noted in HPI and below Physical Exam Const General: cooperative, healthy appearing, comfortable, no acute distress, well developed, alert and awake Nutritional Appearance: average body habitus Orientation/consciousness: patient oriented x3 Limitations: no limitations HEENT Head: Yes normal to inspection, Yes normocephalic and Yes atraumatic Ears: hearing grossly normal bilaterally Eyes General: appearance normal, both eyes and all related structures Neck Neck: Yes normal visual inspection and Yes trachea midline Chest Chest palpation & inspection: normal inspection of the chest Resp Effort & Inspection: normal respiratory effort and able to speak in complete sentences Cardio Rate: regular rate GI Inspection: Yes normal to inspection General: Yes no CVA tenderness Back/Spine/Pelvis Back: no CVA tenderness Skin General skin exam: no rashes or lesions noted Neuro General: patient oriented x3 Extrem General: Yes normal to inspection Psych Appearance: grossly normal and well kempt Mental Status: mental status grossly normal Speech and movement: Normal speech and movement present and Clear speech present Affect: normal affect Attitude: cooperative Thought process: Normal thought process present Thought content: Normal thought content present Insight: Fair insight present (Psych) Judgement: Fair judgement present (Psych) Office Procedures Post Void Residual Post Residual Void Post Void Residual (PVR): 0 39089-Xujx Void Residual by ultrasound Results AMB Urinalysis, Automated UA Leukoctes 0 Alessandra/uL Last Edit by [employer] [facility] on 02/18/24 15:35 UA Nitrite Last Edit by [employer] [facility] on 02/18/24 15:35 UA Urobilinogen 0.2 mg/dL Last Edit by [employer] on 02/18/24 15:35 UA Protein 15 mg/dL Last Edit by [employer] on 02/18/24 15:35 UA pH 6.0 Last Edit by [employer] on 02/18/24 15:35 UA Blood 0 Daniel/uL Last Edit by [employer] on 02/18/24 15:35 UA Specific [place] 1.020 Last Edit by [employer] on 02/18/24 15:35 UA Ketone Last Edit by [employer] on 02/18/24 15:35 UA Bilirubin 0 mg/dL Last Edit by [employer] on 02/18/24 15:35 UA Glucose 0 mg/dL Last Edit by [employer] on 02/18/24 15:35 Results Reviewed Results Reviewed: Laboratory Last Values Urine pH (Auto) 6.0 02/18/24 15:34 Specific [place] (Auto) 1.020 02/18/24 15:34 Urine Protein (Auto) 15 mg/dL 02/18/24 15:34 Glucose (UA)(Auto) 0 mg/dL 02/18/24 15:34 Urine Blood (Auto) 0 Daniel/uL 02/18/24 15:34 Urine Bilirubin (Auto) 0 mg/dL 02/18/24 15:34 Urine Urobilinogen (Auto) 0.2 mg/dL 02/18/24 15:34 Leukocyte Esterase (Auto) 0 Alessandra/uL 02/18/24 15:34 Assessment & Plan Assessment & Plan (1) Urgency incontinence: Code(s): N39.41 - Urge incontinence Category: Medical (2) Stress incontinence: Code(s): N39.3 - Stress incontinence (female) (male) Category: Medical Plan In office urinalysis results reviewed the patient today; as noted above. PVR 0 mL. We discussed at length potential causes of stress/urge incontinence. We discussed treatment options for lower urinary tract symptoms patient was experiencing. We discussed bladder triggers/irritants. Will obtain retroperitoneal ultrasound for further assessment evaluation. Start Myrbetriq as discussed and prescribed. We discussed in office urodynamics for further assessment evaluation. Follow-up in 3 months with imaging and PVR; or sooner with any issues, concerns, and or questions. Orders: Orders AMB Post Void Residual by ultrasound Today N39.41 - Urge incontinence US retroperitoneal comp Today N39.3 - Stress incontinence (female) (male), N39.41 - Urge incontinence AMB Urinalysis Automated Today Z13.9 - Encounter for screening, unspecified Medications: New mirabegron ER (Myrbetriq) 25 mg PO DAILY 30 days 30 tabs 3RF N30.10 - Interstitial cystitis (chronic) without hematuria, N32.81 - Overactive bladder, R35.1 - Nocturia, R39.15 - Urgency of urination Patient Instructions: The patient had an opportunity to ask questions regarding the treatment plan. All questions were answered. Physical exam, labs, and imaging were discussed and reviewed in detail. As well as risks, benefits, and discussion of treatment choices. No major barriers to understanding were identified. The patient expressed understanding and agreement with the above treatment plan. The patient was made aware they should contact our office by phone for worsening of their current condition, the appearance of new symptoms, or with any questions or concerns. Compliance is encouraged with any medications and follow up testing that is ordered. It is a privilege to be allowed the opportunity to participate in? your urological care.? Again, if you have any questions or concerns If you have any questions or concerns please do not hesitate to contact me. The office is [phone]. This note is constructed using voice recognition software. While every effort has been made to ensure accuracy termite renewal inspector errors may have been included. Yours sincerely, ELIER Villa Coding Level of Care Code New Pt Level 4 (77832) Diagnoses Urgency incontinence N39.41 Stress incontinence N39.3 CPT Codes Post Residual Void - PVR CPT Code: 48067-Ugrb Void Residual by ultrasound ([id number])
== END 2024-02-18 16:09 | disposition home or self-care (01) ==
PROVIDERS: PCP Internal Medicine; Visit Provider Nurse Practitioner Family
DX: N39.41 Urge incontinence (principal); N39.3 Stress incontinence (female) (male); Z13.9 Encounter for screening, unspecified
CPT/HCPCS: 99204

== ENCOUNTER → 2024-02-18 14:55 | Outpatient (BNVA) | payer BC, SELFPAY | PROVIDERS: PCP Internal Medicine; Visit Provider Nurse Practitioner Family | DX: N39.46 Mixed incontinence (principal); N30.10 Interstitial cystitis (chronic) without hematuria; N32.81 Overactive bladder | CPT/HCPCS: 51798; 81003 ==

== ENCOUNTER 2024-05-06 13:24 | Outpatient (REF) | payer BC, SELFPAY ==
--- NOTE | ~2024-05-06 | MR_ITS ---
EXAMINATION: MR BREAST WITHOUT AND WITH CONTRAST, BILATERAL CLINICAL INFORMATION: Strong family history of breast cancer including sister in her 40s. Bilateral silicone implants. COMPARISON: Mammogram September 2023 breast MRI April 2023 TECHNIQUE: MR imaging of the breast was performed using T1, T2 and fat saturated techniques. Dynamic multiphase imaging was also performed after administration of intravenous gadolinium contrast agent. Computer generated 3-D reconstruction was performed. FINDINGS: There is heterogeneous fibroglandular breast tissue with marked background enhancement bilateral scattered enhancing foci. There are bilateral retropectoral intact silicone implants. LEFT BREAST: No suspicious enhancing masses or areas of nonmass enhancement. No architectural distortion. No internal mammary or axillary adenopathy. RIGHT BREAST: No suspicious enhancing masses or areas of nonmass enhancement. No architectural distortion. No internal mammary or axillary adenopathy. Limited views of the chest and abdomen are unremarkable. MR/MR breast BI wo/w con IMPRESSION: No MR evidence of malignancy bilateral breasts. Recommend breast MRI screening surveillance in one year. ASSESSMENT: LEFT BREAST: BI-RADS 1-Negative RIGHT BREAST: BI-RADS 1-Negative RECOMMENDATIONS: Yearly screening mammography. Yearly MRI screening surveillance. Electronically signed by: Ira Baig DO 05/08/2024 08:41 PM EDT
[2024-05-06] MEDS: gadobutroL 7.5 ML VIAL IVPUSH (14:29)
== END 2024-05-06 13:25 | disposition home or self-care (01) ==
LOC: HO.MRI 13:24
PROVIDERS: PCP Internal Medicine; Visit Provider Surgery
DX: Z12.39 Encounter for other screening for malignant neoplasm of breast (principal); Z91.89 Other specified personal risk factors, not elsewhere classified; Z80.3 Family history of malignant neoplasm of breast
CPT/HCPCS: 77049; A9585

== ENCOUNTER → 2024-05-06 13:39 | Outpatient (BNV) | payer BC, SELFPAY | PROVIDERS: PCP Internal Medicine; Visit Provider Internal Medicine | DX: Z80.3 Family history of malignant neoplasm of breast (principal) | CPT/HCPCS: 77049 ==

== ENCOUNTER 2024-05-12 15:19 | Outpatient (AMB) | payer BC, SELFPAY ==
--- NOTE | 2024-05-12 15:20 | A.OFFVIS_ITS ---
Vital Signs 05/12/24 15:21 Height 5 ft 3 in Weight 130 lb BMI 23.0 BP 134/74 Blood Pressure Location Rt brachial Position Sitting Pulse 78 Pulse Source Pulse Oximeter Pulse Oximetry (%) 99 Oxygen Delivery Method Room Air Intake Visit Reasons: 6 month follow up Intake Note: Patient is seen in office for 6 month follow up, breast exam. Pt c/o: No new concerns or sx to report. MRI:05/06/24 MRI:10/14/23 Allergies shellfish derived [SHELLFISH DERIVED] Allergy (Severe, Verified 05/12/24 15:20) ANAPHYLAXIS azithromycin [From ZITHROMAX] Allergy (Unknown, Verified 05/12/24 15:20) HIVES erythromycin base [ERYTHROMYCIN BASE] Allergy (Unknown, Verified 05/12/24 15:20) HIVES morphine [MORPHINE] Allergy (Unknown, Verified 05/12/24 15:20) HYPOTENSIVE cefuroxime [From Ceftin] Allergy (Verified 05/12/24 15:20) Hives From CEFTIN Allergy (Unknown, Uncoded 05/12/24 15:20) HIVES Medication List - Last Reconciled 05/12/24 by Pedro Godwin MD albuterol sulfate 90 mcg/actuation inhalation cetirizine (Zyrtec) 10 mg PO DAILY epinephrine (EpiPen) 0.3 mg IM Q10M PRN ibuprofen 400 mg PO Q8H levonorgestrel (Mirena) intrauterine lorazepam (Ativan) 0.5 mg orally 1 hour prior to MRI, repeat x1 prn PRN; omalizumab (Xolair) mg subcut tizanidine 2 mg PO TID PRN HPI Comments Details: 43-year-old female patient found to be at high risk for breast cancer due to family history including a maternal grandmother, paternal grandmother and sister having been diagnosed with breast cancer. She previously underwent bilateral breast augmentation with a combination of saline/silicone implants. She tolerated the procedure well and denies any postoperative complications. She did have a problem with palpable lumps in the breast several years ago and was followed closely with mammogram and ultrasound but this has subsequently resolved without the need for surgery. Her sister was diagnosed with triple negative breast cancer last year at the age of 45 and is being treated in [facility] with chemotherapy and radiation therapy. The patient is 5 para 3 with 3 living, 1 miscarriage and 1 termination. She denies breast-feeding her children. She denies any previous history of breast infections. Her most recent mammogram of 10/06/2023 revealed no mammographic evidence of malignancy (BI-RADS 1). She underwent genetic testing on 02/12/2023. This revealed no clinically significant mutation. 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 A breast cancer risk score was calculated at 21% placing her at high risk for breast cancer her Tyrer- Cuzick remaining lifetime risk of breast cancer was 23.0 %. Recommendations included monthly self examination, twice yearly clinical breast examination, and yearly mammogram and yearly breast MRI alternating every 6 months. Her most recent breast MRI performed on 05/06/2024 revealed no MR specific evidence of malignancy (BI-RADS 1 bilateral). Routine follow-up in 1 year is recommended. She denies any new breast symptoms. [facility] Medical History Urgency incontinence Surgical History Personal history of spine surgery H/O breast augmentation H/O knee surgery Hx of tubal ligation S/P cervical disc replacement H/O discectomy Family History Father Diabetes mellitus Hypertension Maternal Grandmother History of breast cancer Paternal Grandmother History of breast cancer Lupus Sister History of breast cancer, Onset Age: 45 Family/Other Cancer of unknown origin Maternal Aunt Ovarian cancer Social History Household Members: Spouse and Children Housing: House Alcohol intake: current Alcohol intake frequency: holidays/special occasions only Patient Tobacco Use Status: Current everyday Tobacco user Cigarettes Per Day: 10 Years Smoked: 20 Current occupational status: employed 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 Sexual orientation: Straight/Heterosexual Gender identity: Female Female Reproductive History Menstrual Age of Menarche: 11 Review of Systems Const All systems reviewed & are unremarkable except as noted in HPI and below Physical Exam Vital Signs: Last Vital Signs Pulse 78 05/12/24 15:21 BP 134/74 05/12/24 15:21 Pulse Ox 99 05/12/24 15:21 Oxygen Delivery Method Room Air 05/12/24 15:21 BMI result Body Mass Index 23.0 Const General: no acute distress Nutritional Appearance: well nourished Orientation/consciousness: patient oriented x3 Chest Other: Bilateral breast implants with intact capsules and well-healed incisions. Left breast: No skin change, no nipple retraction, no nipple discharge, no palpable mass, no enlarged lymph nodes. Right breast: No skin change, no nipple retraction, no nipple discharge, no palpable mass, no enlarged lymph nodes Resp Effort & Inspection: normal respiratory effort, no audible wheezes, no cough and no respiratory distress Skin Other: Warm, dry, no rash Neuro General: patient oriented x3 Extrem Other: No edema Assessment & Plan Assessment & Plan (1) At high risk for breast cancer: Code(s): Z91.89 - Other specified personal risk factors, not elsewhere classified Category: Medical (2) Family history of breast cancer: Code(s): Z80.3 - Family history of malignant neoplasm of breast Category: Medical (3) Hx of breast implants, bilateral: Code(s): Z98.82 - Breast implant status Category: Surgical Plan 43-year-old female patient with a strong family history of breast cancer felt to be at high risk for breast cancer with a Tyrer-Cuzick score of 23 %. She feels well and denies any ongoing breast symptoms. Her most recent mammogram of 10/06/2023 revealed no mammographic evidence of malignancy (BI-RADS 1). Breast MRI performed on 05/06/2024 revealed no MR specific evidence of malignancy (BI- RADS 1 bilateral). Examination reveals bilateral breast implants with no new suspicious findings in either breast. I recommended follow-up examination in 6 months. Her annual mammogram is scheduled for 10/13/2024 at the [facility]. Coding Level of Care Code Est Pt Level 3 (83713) Diagnoses At high risk for breast cancer Z91.89 Family history of breast cancer Z80.3 Hx of breast implants, bilateral Z98.82
[2024-05-12 15:21] VITALS: BP 134/74; PULSE 78; O2SAT 99; BMI 23.0
== END 2024-05-12 15:36 | disposition home or self-care (01) ==
LOC: HO.HGS 15:20
PROVIDERS: PCP Internal Medicine; Visit Provider Surgery
DX: Z91.89 Other specified personal risk factors, not elsewhere classified (principal); Z80.3 Family history of malignant neoplasm of breast; Z98.82 Breast implant status
CPT/HCPCS: 99213

== ENCOUNTER → 2024-05-12 15:19 | Outpatient (BNVA) | payer BC, SELFPAY | PROVIDERS: PCP Internal Medicine; Visit Provider Surgery | DX: Z80.3 Family history of malignant neoplasm of breast (principal); Z91.89 Other specified personal risk factors, not elsewhere classified ==

== ENCOUNTER 2024-10-13 15:58 | Outpatient (REF) | payer BC, SELFPAY ==
--- NOTE | ~2024-10-13 | MM_ITS ---
EXAMINATION: MM SCREENING DIGITAL BREAST TOMOSYNTHESIS, BILATERAL CLINICAL INFORMATION: Screening. Asymptomatic. COMPARISON: Mammography: Comparison is made with relevant avialable priors. TECHNIQUE: Digital mammography is performed in craniocaudal and mediolateral oblique views along with computer-aided detection (CAD). Digital breast tomosynthesis is performed in implant-displaced craniocaudal and implant-displaced mediolateral oblique views along with computer-aided detection (CAD). FINDINGS: The breasts are heterogeneously dense, which may obscure small masses (ACR BI-RADS breast composition Category c). Bilateral retropectoral saline implants are normal-appearing. There are no significant masses, abnormal calcifications, or other abnormalities. MM/MM tomosynthesis screen imp BI IMPRESSION: There are no significant changes from prior study. ASSESSMENT: BI-RADS BI-RADS 2 - Benign Findings RECOMMENDATION: Routine annual mammography screening. 1 year F/U This patient's information was entered into a reminder system with a target due date for their next mammogram. Electronically signed by: Ira Baig DO 10/17/2024 05:22 PM EDT
== END 2024-10-13 15:59 | disposition home or self-care (01) ==
LOC: HO.MAMMO 15:58
PROVIDERS: PCP Internal Medicine; Visit Provider Internal Medicine
DX: Z12.31 Encounter for screening mammogram for malignant neoplasm of breast (principal)
CPT/HCPCS: 77063; 77067

== ENCOUNTER → 2024-10-13 16:15 | Outpatient (BNV) | payer BC, SELFPAY | PROVIDERS: PCP Internal Medicine; Visit Provider Internal Medicine | DX: Z12.31 Encounter for screening mammogram for malignant neoplasm of breast (principal) | CPT/HCPCS: 77063; 77067 ==

== ENCOUNTER 2024-11-10 09:19 | Outpatient (REF) | payer BC, SELFPAY ==
[2024-11-11 08:13] LABS: Bacterial Vaginosis PCR NEGATIVE (Negative); Candida Group PCR NOT DETECTED (Not Detect); Candida glab krusei PCR NOT DETECTED (Not Detect); Trichomonas vaginalis PCR NOT DETECTED (Not Detect)
== END 2024-11-10 09:20 | disposition home or self-care (01) ==
LOC: HO.LAB 09:19
PROVIDERS: PCP Internal Medicine; Visit Provider Advanced Practice Midwife
DX: Z30.432 Encounter for removal of intrauterine contraceptive device (principal); N64.4 Mastodynia; N89.8 Other specified noninflammatory disorders of vagina; Z20.2 Contact with and (suspected) exposure to infections with a predominantly sexual mode of transmission
CPT/HCPCS: 58301; 81515

== ENCOUNTER 2024-11-10 09:19 | Outpatient (AMB) | payer BC, SELFPAY ==
[2024-11-10 09:26] VITALS: BP 122/64; BMI 24.3
--- NOTE | 2024-11-10 09:26 | A.OFFVIS_ITS ---
Vital Signs 11/10/24 09:26 Height 5 ft 3 in Weight 137 lb BMI 24.3 BP 122/64 Intake Visit Reasons: IUD issues Intake Note: pt c/o some bleeding with Mirena last week and chronic yeast infections, wants IUD taken out. Also right breast pain possibly from coughing Roll Examiner: Roll Examiner Present (Makenzie) Allergies shellfish derived (SHELLFISH DERIVED) Allergy (Severe, Verified 11/10/24 09:26) ANAPHYLAXIS azithromycin (From ZITHROMAX) Allergy (Unknown, Verified 11/10/24 09:26) HIVES erythromycin base (ERYTHROMYCIN BASE) Allergy (Unknown, Verified 11/10/24 09:26) HIVES morphine (MORPHINE) Allergy (Unknown, Verified 11/10/24 09:26) HYPOTENSIVE cefuroxime (From Ceftin) Allergy (Verified 11/10/24 09:26) Hives From CEFTIN Allergy (Unknown, Uncoded 05/12/24 15:20) HIVES Is last menstrual period known: Yes Last menstrual period: 10/31/24 HPI Comments Details: Patient is here today for several concerns: 1. Light bleeding last week when wiping x1 day, followed by spotting for several days, does not usually bled. 2. Chronic yeast infections since having a Mirena placed years ago. She has an external PCP and reports her BS levels are normal, and reports a healthy diet without excessive sugar. PCP, records are not available. 3. Right-sided breast pain for 2 months, she thinks it might be from a muscle strain, noted discomfort with turning towards her left side. Mammogram 10/11/19 25-ASSESSMENT: BI-RADS BI-RADS 2 - Benign Findings. She denies any trauma to the breast or any changes with her implant. Has biannual screening including MRI study, follow up by Dr. Godwin. 4. Requests IUD be removed today. IUD used for AUB. History of tubal ligation. [facility] Medical History (Updated 11/10/24 @ 11:25 by Wendy Marshall CNM) Elevated IgE level Breast pain, right Urgency incontinence Surgical History Personal history of spine surgery H/O breast augmentation H/O knee surgery Hx of tubal ligation S/P cervical disc replacement H/O discectomy Family History Father Diabetes mellitus Hypertension Maternal Grandmother History of breast cancer Paternal Grandmother History of breast cancer Lupus Sister History of breast cancer, Onset Age: 45 Family/Other Cancer of unknown origin Maternal Aunt Ovarian cancer Social History Household Members: Spouse and Children Housing: House Alcohol intake: current Alcohol intake frequency: holidays/special occasions only Patient Tobacco Use Status: Current everyday Tobacco user Cigarettes Per Day: 10 Years Smoked: 20 Current occupational status: employed 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 Sexual orientation: Straight/Heterosexual Gender identity: Female Female Reproductive History Menstrual Age of Menarche: 11 Date of last menstrual period: 10/31/24 control method: progestin IUCD (Mirena 07/2021) Review of Systems Const All systems reviewed & are unremarkable except as noted in HPI and below Reports no additional complaints Skin/Breast Reports system reviewed and no additional complaints, except as documented and Reports as per HPI Endo Reports no additional complaints Physical Exam Vital Signs: Last Vital Signs BP 122/64 11/10/24 09:26 BMI result Body Mass Index 24.3 Const General: cooperative, healthy appearing and no acute distress Orientation/consciousness: patient oriented x3 Chest Other: Bilateral implants, right breast pain noted from the 6 o'clock to 12 o'clock position. Breast/axilla inspection: normal inspection of the breasts and normal inspection of the axillae Breast/axilla palpation: normal palpation of the breasts GI Inspection: Yes normal to inspection Palpation (GI): Soft to palpation and Other GI palpation findings present (Nontender) Rectal Exam - Female: visual inspection normal General: Yes bladder normal to palpation External Female Exam: normal appearance of the urethra Speculum Exam - Vagina: normal appearance of the vagina, normal palpation and normal vaginal discharge Speculum Exam - Cervix: normal appearance of the cervix, normal palpation and Other cervical findings present (IUD strings at the os) Bimanual exam- vagina & uterus: normal bimanual exam, normal palpation, uterine size normal, bladder normal to palpation, normal palpation, uterine shape normal and non-tender Bimanual Exam- Adnexa, other: normal adnexae Skin General skin exam: no rashes or lesions noted Neuro General: patient oriented x3 Psych Appearance: well kempt Attitude: cooperative Thought process: Normal thought process present Office Procedures IUD Insert/Removal Details Details: The patient presents today for a IUD removal. ?She is planning to do nothing and observe her bleeding patterns for now. She was counseled regarding the removal of her IUD. She was consented for the procedure along with anticipatory guidance for the removal and the consents form was signed. She desires to proceed with the IUD removal. IUD Removal Procedure: The patient was placed in the dorsal lithotomy position. A speculum was inserted vaginally and the cervix and strings were visualized at the os. A ring forcep was utilized, and the patient was asked to give a deep cough while the strings were grasped and gently tugged at the same time, removing the IUD device intact. Minimal bleeding was observed. All of the equipment was removed. The patient tolerated the procedure well and left the office in good condition. IUD Removal Information: You may have light bleeding for several days, tapering off to a brown or pink color. Mild cramping after removal is common. If not allergic, you may take an over the counter mild analgesic for the discomfort, such as Tylenol or Advil (use dosing and frequency per the manu facturers recommendations). Call the office if you experience: fever (over 100.4), flu like symptoms, abdominal or pelvic pain, foul smelling discharge or heavy bleeding. If not planning for a future , another form of control is recommended. Use of condoms for prevention of STI's is also recommended, if indicated. This note is constructed using voice recognition software. ?While every effort has been made to ensure accuracy, powder press operator errors may have been included. ? [id number]-[id number] Removal Procedure code (CPT) selection complete Results Reviewed Results Reviewed: [facility] [address] [place] [address] Mammography Report Signed Patient: Shannan Trinidad MR#: [id number] : 1980 Acct:[id number] Age/Sex: 44 / F ADM Date: 10/13/24 Loc: [facility] Attending Dr: Kai Perez MD Ordering Physician: Kai Perez MD Results: 2Benign Findings Date of Service: 10/13/24 Follow Up: 1 Year From Original Mammogram Procedure(s): MM tomosynthesis screen imp BI Accession Number(s): [id number] cc: Kai Perez MD~ EXAMINATION: MM SCREENING DIGITAL BREAST TOMOSYNTHESIS, BILATERAL CLINICAL INFORMATION: Screening. Asymptomatic. COMPARISON: Mammography: Comparison is made with relevant avialable priors. TECHNIQUE: Digital mammography is performed in craniocaudal and mediolateral oblique views along with computer-aided detection (CAD). Digital breast tomosynthesis is performed in implant-displaced craniocaudal and implant-displaced mediolateral oblique views along with computer-aided detection (CAD). FINDINGS: The breasts are heterogeneously dense, which may obscure small masses (ACR BI-RADS breast composition Category c). Bilateral retropectoral saline implants are normal-appearing. There are no significant masses, abnormal calcifications, or other abnormalities. MM/MM tomosynthesis screen imp BI IMPRESSION: There are no significant changes from prior study. ASSESSMENT: BI-RADS BI-RADS 2 - Benign Findings RECOMMENDATION: Routine annual mammography screening. 1 year F/U This patient's information was entered into a reminder system with a target due date for their next mammogram. Electronically signed by: Ira Baig DO 10/17/2024 05:22 PM EDT RP Dictated By: Ira Baig DO Signed By: <Electronically signed by Ira Baig DO in OV> 10/17/24 1722 DD/ 1600 TD/TT: 10/13/24 1620 Consulting Sales Manager: Assessment & Plan Assessment & Plan (1) Breast pain, right: Code(s): N64.4 - Mastodynia Category: Medical Plan: Plan breast ultrasound in area of pain-6 o'clock to 12 o'clock position. Follow up pending ultrasound results. The patient expressed understanding and agreement with the plan of care. All of her questions and concerns were address ed to the best of my ability. (2) Encounter for IUD removal: Code(s): Z30.432 - Encounter for removal of intrauterine contraceptive device Plan: IUD removed today. IUD removed successfully, see procedure notes. Monitor menstrual cycles, report any unscheduled bleeding, bleeding episodes <24 days apart or heavy/prolonged menstrual bleeding. Call the office for a follow up for any concerns. The patient expressed understanding and agreement with the plan of care. All of her questions and concerns were addressed to the best of my ability. (3) Vaginal discharge: Code(s): N89.8 - Other specified noninflammatory disorders of vagina Plan BV panel obtained await results for final plan of care. Recommended to start a women's probiotics. The patient expressed understanding and agreement with the plan of care. All of her questions and concerns were addressed to the best of my ability. This note is constructed using voice recognition software. While every effort has been made to ensure accuracy, powder press operator errors may have been included. Orders: Orders Bacterial Vaginosis Panel 11/10/24 N89.8 - Other specified noninflammatory disorders of vagina breast RT limited 11/10/24 N64.4 - Mastodynia Coding Level of Care Code Est Pt Level 3 (51492) Diagnoses Breast pain, right N64.4 Encounter for IUD removal Z30.432 Vaginal discharge N89.8 CPT Codes Details - CPT: 90155-KIJ Removal ([id number])
== END 2024-11-10 10:20 | disposition home or self-care (01) ==
LOC: HO.HWS 09:20
PROVIDERS: PCP Internal Medicine; Visit Provider Advanced Practice Midwife
DX: Z30.432 Encounter for removal of intrauterine contraceptive device (principal); N64.4 Mastodynia; N89.8 Other specified noninflammatory disorders of vagina
CPT/HCPCS: 58301

== ENCOUNTER 2024-11-24 10:45 | Outpatient (REF) | payer BC, SELFPAY ==
--- NOTE | ~2024-11-24 | US_ITS ---
EXAMINATION: US DIAGNOSTIC ULTRASOUND BREAST, RIGHT CLINICAL INFORMATION: Right breast pain.. COMPARISON: Comparison is made with relevant prior imaging. TECHNIQUE: Ultrasound of the breast is performed with real-time mancia scale imaging and color Doppler. FINDINGS: Targeted color Doppler ultrasound scanning from 6-12 in the lateral right breast area of patient's pain demonstrates normal fibronodular breast tissue. There is no sonographic abnormal finding. Results are discussed with the patient at time of visit. US/US Breast RT Limited Mamm Only IMPRESSION: No sonographic abnormal finding to account for the patient's right breast pain. Recent mammography November 03 was benign. Recommend clinical evaluation and follow-up. ASSESSMENT: BI-RADS 1: Negative RECOMMENDATION: Recommend clinical evaluation and followup This patient's information was entered into a reminder system with a target due date for their next mammogram. Electronically signed by: Ira Baig DO 11/24/2024 11:57 AM EDT
== END 2024-11-24 10:46 | disposition home or self-care (01) ==
LOC: HO.MAMMO 10:45
PROVIDERS: PCP Internal Medicine; Visit Provider Internal Medicine
DX: N64.4 Mastodynia (principal)
CPT/HCPCS: 76642

== ENCOUNTER → 2024-11-24 11:00 | Outpatient (BNV) | payer BC, SELFPAY | PROVIDERS: PCP Internal Medicine; Visit Provider Internal Medicine | DX: N64.4 Mastodynia (principal) | CPT/HCPCS: 76642 ==

== ENCOUNTER 2024-11-29 16:05 | Outpatient (AMB) | payer BC, SELFPAY ==
--- NOTE | 2024-11-29 16:04 | A.OFFVIS_ITS ---
Vital Signs 11/29/24 16:15 Height 5 ft 3 in Weight 137 lb BMI 24.3 BP 110/66 Blood Pressure Location Rt radial Position Sitting Pulse 76 Intake Visit Reasons: 6 month breast exam Intake Note: Pt states, I had an US and I still have the pain on the right side. Sometimes both Top Trimmer Required: No Allergies shellfish derived (SHELLFISH DERIVED) Allergy (Severe, Verified 11/29/24 16:14) ANAPHYLAXIS azithromycin (From ZITHROMAX) Allergy (Unknown, Verified 11/29/24 16:14) HIVES erythromycin base (ERYTHROMYCIN BASE) Allergy (Unknown, Verified 11/29/24 16:14) HIVES morphine (MORPHINE) Allergy (Unknown, Verified 11/29/24 16:14) HYPOTENSIVE cefuroxime (From Ceftin) Allergy (Verified 11/29/24 16:14) Hives From CEFTIN Allergy (Unknown, Uncoded 11/29/24 16:14) HIVES Medication List - Last Reconciled 11/29/24 by Zach Massey RN albuterol sulfate 90 mcg/actuation inhalation cetirizine (Zyrtec) 10 mg PO DAILY epinephrine (EpiPen) 0.3 mg IM Q10M PRN ibuprofen 400 mg PO Q8H tizanidine 2 mg PO TID PRN HPI Comments Details: [id number] female patient found to be at high risk for breast cancer due to family history including a maternal grandmother, paternal grandmother and sister having been diagnosed with breast cancer. She previously underwent bilateral breast augmentation with a combination of saline/silicone implants. She tolerated the procedure well and denies any postoperative complications. She did have a problem with palpable lumps in the breast several years ago and was followed closely with mammogram and ultrasound but this has subsequently resolved without the need for surgery. Her sister was diagnosed with triple negative breast cancer last year at the age of 45 and is being treated in [facility] with chemotherapy and radiation therapy. The patient is 5 para 3 with 3 living, 1 miscarriage and 1 termination. She denies breast-feeding her children. She denies any previous history of breast i nfections. Her most recent mammogram of 10/13/2024 revealed no mammographic evidence of malignancy (BI-RADS 2). She underwent genetic testing on 02/12/2023. This revealed no clinically significant mutation. 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 A breast cancer risk score was calculated at 21% placing her at high risk for breast cancer [facility] remaining lifetime risk of breast cancer was 23.0 %. Recommendations included monthly self examination, twice yearly clinical breast examination, and yearly mammogram and yearly breast MRI alternating every 6 months. Her most recent breast MRI performed on 05/06/2024 revealed no MR specific evidence of malignancy (BI-RADS 1 bilateral). Routine follow-up in 1 year is recommended. She denies any new breast symptoms. [facility] Medical History Elevated IgE level Breast pain, right Urgency incontinence Surgical History Personal history of spine surgery H/O breast augmentation H/O knee surgery Hx of tubal ligation S/P cervical disc replacement H/O discectomy Family History Father Diabetes mellitus Hypertension Maternal Grandmother History of breast cancer Paternal Grandmother History of breast cancer Lupus Sister History of breast cancer, Onset Age: 45 Family/Other Cancer of unknown origin Maternal Aunt Ovarian cancer Social History Household Members: Spouse and Children Housing: House Alcohol intake: current Alcohol intake frequency: holidays/special occasions only Patient Tobacco Use Status: Current everyday Tobacco user Cigarettes Per Day: 10 Years Smoked: 20 Current occupational status: employed 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 Left breast: No skin change, no nipple retraction, no nipple discharge, no palpable mass, no enlarged lymph nodes. Right breast: No skin change, no nipple retraction, no nipple discharge, no palpable mass, no enlarged lymph nodes Resp Effort & Inspection: normal respiratory effort, no audible wheezes, no cough and no respiratory distress Skin Other: Warm, dry, no rash Neuro General: patient oriented x3 Extrem Other: No edema Assessment & Plan Assessment & Plan (1) At high risk for breast cancer: Code(s): Z91.89 - Other specified personal risk factors, not elsewhere classified Category: Medical (2) Family history of breast cancer: Code(s): Z80.3 - Family history of malignant neoplasm of breast Category: Medical (3) Hx of breast implants, bilateral: Code(s): Z98.82 - Breast implant status Category: Surgical Plan 44-year-old female patient with a strong family history of breast cancer felt to be at high risk for breast cancer with a Tyrer-Cuzick score of 23 %. She feels well and denies any ongoing breast symptoms. Her most recent mammogram of 10/13/2024 revealed no mammographic evidence of malignancy (BI-RADS 2). Breast MRI performed on 05/06/2024 revealed no MR specific evidence of malignancy (BI- RADS 1 bilateral). Examination reveals bilateral breast implants with no new suspicious findings in either breast. I recommended follow-up examination in 6 months. She will be due for her annual breast MRI in April of 2025. Coding Level of Care Code Est Pt Level 3 (94259) Complex EM visit Add On G2211 Diagnoses At high risk for breast cancer Z91.89 Family history of breast cancer Z80.3 Hx of breast implants, bilateral Z98.82
[2024-11-29 16:15] VITALS: BP 110/66; PULSE 76; BMI 24.3
== END 2024-11-29 16:15 | disposition home or self-care (01) ==
LOC: HO.HGS 16:05
PROVIDERS: PCP Internal Medicine; Visit Provider Surgery
DX: Z91.89 Other specified personal risk factors, not elsewhere classified (principal); Z80.3 Family history of malignant neoplasm of breast; Z98.82 Breast implant status
CPT/HCPCS: 99213

== ENCOUNTER 2024-12-14 14:53 | Outpatient (AMB) | payer BC, SELFPAY ==
--- NOTE | 2024-12-14 14:56 | A.OFFVIS_ITS ---
Vital Signs 12/14/24 14:57 Height 5 ft 3 in Weight 137 lb BMI 24.3 BP 114/72 Intake Visit Reasons: annual/us follow up Research Program Coordinator: Research Program Coordinator Present (Makenzie) Allergies shellfish derived (SHELLFISH DERIVED) Allergy (Severe, Verified 12/14/24 14:59) ANAPHYLAXIS azithromycin (From ZITHROMAX) Allergy (Unknown, Verified 12/14/24 14:59) HIVES erythromycin base (ERYTHROMYCIN BASE) Allergy (Unknown, Verified 12/14/24 14:59) HIVES morphine (MORPHINE) Allergy (Unknown, Verified 12/14/24 14:59) HYPOTENSIVE cefuroxime (From Ceftin) Allergy (Verified 12/14/24 14:59) Hives From CEFTIN Allergy (Unknown, Uncoded 11/29/24 16:14) HIVES HPI Comments Details: Patient is a premenopausal woman presenting for annual examination. 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 Occasional hot flashes. Had brown spotting 11/15-, -. History of tubal ligation. No concerns with intimacy. No itching, irritation or discharge. Last pap smear 2022, negative. Mammogram: 11/2024. Diet is balanced. Exercise is limited with back problems. FH breast and ovarian cancer. Colonscopy is up to date. Reviewed results for breast imaging today, patient reports breast pain is somewhat improved. Had a follow up with Dr. Godwin. [facility] Medical History Elevated IgE level Breast pain, right Urgency incontinence Surgical History Personal history of spine surgery H/O breast augmentation H/O knee surgery Hx of tubal ligation S/P cervical disc replacement H/O discectomy Family History Father Diabetes mellitus Hypertension Maternal Grandmother History of breast cancer Paternal Grandmother History of breast cancer Lupus Sister History of breast cancer, Onset Age: 45 Family/Other Cancer of unknown origin Maternal Aunt Ovarian cancer Mother Colon polyps Social History Household Members: Spouse and Children Housing: House Alcohol intake: current Alcohol intake frequency: holidays/special occasions only Patient Tobacco Use Status: Current everyday Tobacco user Cigarettes Per Day: 10 Years Smoked: 20 Current occupational status: employed 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 Sexual orientation: Straight/Heterosexual Gender identity: Female Female Reproductive History Menstrual Age of Menarche: 11 control method: permanent sterilization Permanent Sterilization: BTL Total pregnancies: 5 Full term: 3 Number of Living Children: 3 Ab induced: 1 Ab spontaneous: 1 Date of last pap smear: 12/05/22 (neg pap and hpv) Date of Mammogram: 10/13/24 (Birad 2) Review of Systems Const All systems reviewed & are unremarkable except as noted in HPI and below Reports as per HPI Eyes Reports no additional complaints ENT Reports no additional complaints Card Reports no additional complaints Resp Reports no additional complaints GI Reports as per HPI and Reports no additional complaints Reports as per HPI Musc Reports no additional complaints Skin/Breast Reports as per HPI Neuro Reports no additional complaints Psych Reports no additional complaints Endo Reports no additional complaints Fredy/Lymph Reports no additional complaints Aller/Immun Reports no additional complaints Physical Exam Vital Signs: Last Vital Signs BP 114/72 12/14/24 14:57 BMI result Body Mass Index 24.3 Const General: cooperative, healthy appearing, no acute distress, well developed and alert Orientation/consciousness: patient oriented x3 HEENT Head: Yes normal to inspection Eyes General: appearance normal, both eyes and all related structures Neck Neck: Yes normal visual inspection Thyroid: Thyroid normal Chest Other: Bilateral implants Chest palpation & inspection: normal inspection of the chest and other (no puckering, dimpling, peau de orange, retraction, discharge, masses) Breast/axilla inspection: normal inspection of the breasts Breast/axilla palpation: normal palpation of the breasts Resp Effort & Inspection: normal respiratory effort GI Inspection: Yes normal to inspection Palpation (GI): Soft to palpation Rectal Exam - Female: deferred General: Yes bladder normal to palpation External Female Exam: normal external appearance and normal appearance of the urethra Speculum Exam - Vagina: normal appearance of the vagina, normal palpation and normal vaginal discharge Speculum Exam - Cervix: normal appearance of the cervix and normal palpation Bimanual exam- vagina & uterus: normal bimanual exam, normal palpation, uterine size normal, bladder normal to palpation, normal palpation and non-tender Bimanual Exam- Adnexa, other: no masses Skin General skin exam: no rashes or lesions noted Rashes: no rashes Neuro General: patient oriented x3 Cognition (Neuro): normal cognition Extrem General: Yes normal to inspection Psych Attitude: cooperative Thought process: Normal thought process present Results Reviewed Results Reviewed: [facility] [address] [place] [address] Ultrasound Report Signed Patient: Shannan Trinidad MR#: [id number] : 1980 Acct:[id number] Age/Sex: 44 / F ADM Date: 11/24/24 Loc: [email or web address] Attending Dr: Kai Perez MD Ordering Physician: Wendy Marshall CNM Date of Service: 11/24/24 Procedure(s): US Breast RT Limited Mamm Only Accession Number(s): [id number] cc: Wendy Marshall CNM; Kai Perez MD~ Reason for Exam: N64.4 - Mastodynia EXAMINATION: US DIAGNOSTIC ULTRASOUND BREAST, RIGHT CLINICAL INFORMATION: Right breast pain.. COMPARISON: Comparison is made with relevant prior imaging. TECHNIQUE: Ultrasound of the breast is performed with real-time mancia scale imaging and color Doppler. FINDINGS: Targeted color Doppler ultrasound scanning from 6-12 in the lateral right breast area of patient's pain demonstrates normal fibronodular breast tissue. There is no sonographic abnormal finding. Results are discussed with the patient at time of visit. US/US Breast RT Limited Mamm Only IMPRESSION: No sonographic abnormal finding to account for the patient's right breast pain. Recent mammography November 03 was benign. Recommend clinical evaluation and follow-up. ASSESSMENT: BI-RADS 1: Negative RECOMMENDATION: Recommend clinical evaluation and followup This patient's information was entered into a reminder system with a target due date for their next mammogram. 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 Breast awareness and periodic breast exams. Mammogram yearly. Maintain a healthy lifestyle including a well balanced diet and routine exercise. Perimenopausal changes. Monitor menstrual cycles, report any unscheduled bleeding, bleeding episodes <24 days apart or heavy/prolonged menstrual bleeding. Call the office for a follow up for any concerns. Patient verbalizes understanding and agrees to the plan of care. She was given opportunity to ask questions and all questions were answered to the best of my ability. RTO in one year for annual reference assistant examination. This note is constructed using voice recognition software. While every effort has been made to ensure accuracy, timber buyer errors may have been included. Coding Level of Care Code Est Pt Prev Care 40-64y(47692) Diagnoses Encounter for annual routine gynecological examination Z01.419
[2024-12-14 14:57] VITALS: BP 114/72; BMI 24.3
== END 2024-12-14 15:30 | disposition home or self-care (01) ==
LOC: HO.HWS 14:54
PROVIDERS: PCP Internal Medicine; Visit Provider Advanced Practice Midwife
DX: Z01.419 Encounter for gynecological examination (general) (routine) without abnormal findings (principal)
CPT/HCPCS: 99396; 99459